=== PATIENT | female | born 1945 | race Caucasian/White ===

== ENCOUNTER → 2016-10-31 | Outpatient (CLI) | payer MEDICARE ==
--- NOTE | 2016-10-31 15:11 | BD ---
EXAMINATION TYPE: MG DEXA axial skeleton. DATE OF EXAM: 10/31/2016 10:16 AM COMPARISON: Previous exam October CLINICAL HISTORY: Known osteopenia Height: 63.5 in Weight: 170 lbs FRAX RISK QUESTIONS: Alcohol (3 or more units per day): NO Family History (Parent hip fracture): NO Glucocorticoids (More than 3mos): NO (Ex: prednisone, prednisolone, methylprednisolone, dexamethasone, and hydrocortisone). History of Fracture in Adulthood: NO Secondary Osteoporosis: 1. Type 1 Diabetes: NO 2. Hyperthyroidism: NO 3. Menopause before 45: NO 4. Malnutrition: NO 5. Chronic liver disease: NO Rheumatoid Arthritis: NO Current Tobacco Use: NO RISK FACTORS HISTORY OF: Active: YES Postmenopausal woman: AGE 52 Take estrogen and/or progesterone medications: YES How long: PREMARIN VAG. CREAM 5 YRS Lost more than 2 inches in height since high school: YES 2" MEDICATIONS: Osteoporosis Medications: NOT NOW Which medication: Evista How Long: AGE 52 - 54 Additional Medications: VITAMIN D, PREMARIN VAG CREAM, BENICAR, PRILOSEC OTC, BABY ASPIRIN, OCUVITE, ADVAIR INHALER EXAM MEASUREMENTS: Bone mineral densitometry was performed using the Vacation View System. 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 Bone mineral density about the R hip (g/cm2): 0.807 Bone mineral density about the L hip (g/cm2): 0.645 T Score values are as follows: -----R Neck: -1.7 -----L Neck: -2.8 -----R Total: -0.4 -----L Total: -2.2 Bone mineral density has: Increased 10.2% since study of: 10/30/2014 IMPRESSION: Osteopenia Left femoral neck in the osteoporotic range may be due to patient's previous treatment. NOTE: T-SCORE=SD OF THE YOUNG ADULT MEAN.
--- NOTE | 2016-11-01 10:24 | MM ---
Reason for exam: screening (asymptomatic). Last mammogram was performed 1 year and 1 month ago. History: Patient is postmenopausal and has history of other cancer at age 12. Family history of premenopausal breast cancer in maternal grandmother at age 54. Benign left mammotome panel of the left breast, September 13, 2012. Benign left mammotome panel of the left breast, September 13, 2012. Benign excisional biopsy of the left breast, 1970. Took hormonal contraceptives for 10 years beginning at age 37. Physical Findings: A clinical breast exam by your physician is recommended on an annual basis and results should be correlated with mammographic findings. MG Screening Mammo w CAD Bilateral CC and MLO view(s) were taken. Prior study comparison: September 28, 2015, bilateral MG screening mammo w CAD. September 25, 2014, bilateral MG screening mammo w CAD. The breast tissue is heterogeneously dense. This may lower the sensitivity of mammography. Finding: There are stable typically benign calcifications in both breasts. Previous mammotome biopsy in the left breast. No significant changes in finding since September 28, 2015 and September 25, 2014. ASSESSMENT: Benign, BI-RAD 2 RECOMMENDATION: Routine screening mammogram of both breasts in 1 year.
== END | disposition home or self-care (01) ==
LOC: RADMAMWWP 10:11
PROVIDERS: ATTEND Obstetrics & Gynecology
DX: Z12.31 Encounter for screening mammogram for malignant neoplasm of breast (principal); M85.80 Other specified disorders of bone density and structure, unspecified site; M81.0 Age-related osteoporosis without current pathological fracture
CPT/HCPCS: 77080; G0202

== ENCOUNTER → 2016-12-19 | Outpatient (CLI) | payer MEDICARE ==
--- NOTE | 2016-12-19 08:42 | US ---
EXAMINATION TYPE: US liver DATE OF EXAM: 12/19/2016 COMPARISON: NONE CLINICAL HISTORY: R94.5 Abn results of liver function study. Takes medication for HTN, allergies, on aspirin and vitamins; gallbladder removed. EXAM MEASUREMENTS: Liver Length: 11.4 cm Gallbladder Wall: surgically removed CBD: 0.6 cm Right Kidney: 9.8 x 6.6 x 4.7 cm Pancreas: hyperechoic Liver: fatty liver as is hyperechoic to right renal cortex Gallbladder: surgically absent CBD: wnl Right Kidney: No hydronephrosis or masses seen Visualized pancreas shows no worrisome mass or ductal dilatation. Visualized liver is heterogeneously hyperechoic in appearance suggesting fatty infiltration. Evaluation for focal masses is suboptimal d ue to the heterogeneity. No intrahepatic ductal dilatation is seen. Gallbladder is surgically absent. Some cortical thinning in visualized right kidney is present. IMPRESSION: Heterogeneous hyperechoic appearance of liver is likely on basis of diffuse fatty infiltr ation, underlying hepatocellular disease cannot BE excluded. Imaging guided random biopsy for tissue analysis can be performed if desired.
== END | disposition home or self-care (01) ==
LOC: RADUSWWP 07:26
PROVIDERS: ATTEND Family Medicine
DX: R93.3 Abnormal findings on diagnostic imaging of other parts of digestive tract (principal)
CPT/HCPCS: 76705

== ENCOUNTER → 2017-11-26 | Outpatient (CLI) | payer MEDICARE ==
--- NOTE | 2017-11-26 15:07 | MM ---
Reason for exam: screening (asymptomatic). Last mammogram was performed 1 year and 1 month ago. History: Patient is postmenopausal and has history of other cancer at age 12. Family history of premenopausal breast cancer in maternal grandmother at age 54. Benign left mammotome panel of the left breast, September 13, 2012. Benign left mammotome panel of the left breast, September 13, 2012. Benign excisional biopsy of the left breast, 1970. Took hormonal contraceptives for 10 years beginning at age 37. Physical Findings: A clinical breast exam by your physician is recommended on an annual basis and results should be correlated with mammographic findings. MG Screening Mammo w CAD Bilateral CC and MLO view(s) were taken. Technologist: RT Madeleine (R)(M) Prior study comparison: October 31, 2016, bilateral MG screening mammo w CAD. September 28, 2015, bilateral MG screening mammo w CAD. The breast tissue is heterogeneously dense. This may lower the sensitivity of mammography. Finding: There are typically benign dystrophic, round calcifications in both breasts. Previous mammotome biopsy in the left breast x 2. There is no discrete abnormality. ASSESSMENT: Benign, BI-RAD 2 RECOMMENDATION: Routine screening mammogram of both breasts in 1 year.
== END | disposition home or self-care (01) ==
LOC: RADMAMWWP 09:23
PROVIDERS: ATTEND Obstetrics & Gynecology
DX: Z12.31 Encounter for screening mammogram for malignant neoplasm of breast (principal)
CPT/HCPCS: 77067

== ENCOUNTER → 2018-12-02 | Outpatient (CLI) | payer MEDICARE ==
--- NOTE | 2018-12-03 11:39 | BD ---
EXAMINATION TYPE: Axial Bone Density DATE OF EXAM: 12/02/2018 COMPARISON: 10/31/2016 CLINICAL HISTORY: M [age] Height: 63.5 IN Weight: 172 LBS RISK FACTORS HISTORY OF: Active: YES Postmenopausal woman: AGE 54 MEDICATIONS: Osteoporosis Medications: NONE NOW Which medication: Fosamax How Lon - 2008 Additional Medications: CALCIUM, VIT D, BLOOD PRESSURE MEDS, PRILOSEC,OCUVITE, Additional History: PT HAD SARCOMA IN LEFT LEG. EXAM MEASUREMENTS: Bone mineral densitometry was performed using the ZIMPERIUM System. Bone mineral density as measured about the Lumbar spine is: ----- L1-L4(G/cm2): 1.198 T Score Values are as follows: ----- L2: 0.2 ----- L3: 0.6 ----- L4: -0.6 ----- L1-L4: 0.1 Bone mineral density has: Increased 6.6% since study of: 10/31/2016 Bone mineral density about the R hip (g/cm2): 0.800 Bone mineral density about the L hip (g/cm2): 0.608 T Score values are as follows: -----R Neck: -1.7 -----L Neck: -3.1 -----R Total: -0.7 -----L Total: -3.0 Bone mineral density has: Decreased -8.3% since study of: 10/31/2016 IMPRESSION: Osteoporosis (T Score less than -2.5) with regards to the left femur. There is increased fracture risk and therapy is usually indicated based on age. Re-Screen 1-2 years. NOTE: T-SCORE=SD OF THE YOUNG ADULT MEAN.
--- NOTE | 2018-12-03 13:31 | MM ---
Reason for exam: screening (asymptomatic). Last mammogram was performed 1 year ago. History: Patient is postmenopausal and has history of other cancer at age 12. Family history of premenopausal breast cancer in maternal grandmother at age 54. Benign left mammotome panel of the left breast, September 13, 2012. Benign left mammotome panel of the left breast, September 13, 2012. Benign excisional biopsy of the left breast, 1970. Took hormonal contraceptives for 10 years beginning at age 37. Physical Findings: A clinical breast exam by your physician is recommended on an annual basis and results should be correlated with mammographic findings. MG 3D Screening Mammo W/Cad Bilateral CC and MLO view(s) were taken. Prior study comparison: November 26, 2017, bilateral MG screening mammo w CAD. October 31, 2016, bilateral MG screening mammo w CAD. The breast tissue is heterogeneously dense. This may lower the sensitivity of mammography. Benign appearing bilateral calcifications. No suspicious abnormality. No significant changes when compared with prior studies. ASSESSMENT: Benign, BI-RAD 2 RECOMMENDATION: Routine screening mammogram of both breasts in 1 year.
== END | disposition home or self-care (01) ==
LOC: RADMAMWWP 14:45
PROVIDERS: ATTEND Obstetrics & Gynecology
DX: Z12.31 Encounter for screening mammogram for malignant neoplasm of breast (principal); M81.0 Age-related osteoporosis without current pathological fracture
CPT/HCPCS: 77063; 77067; 77080

== ENCOUNTER → 2018-12-31 | Outpatient (CLI) | payer MEDICARE ==
--- NOTE | 2018-12-31 20:13 | XR ---
EXAMINATION TYPE: XR lumbar spine 2 or 3V DATE OF EXAM: 12/31/2018 CLINICAL HISTORY: Lumbago, history of osteoarthritis TECHNIQUE: Frontal and lateral images of the lumbar spine are obtained. COMPARISON: None FINDINGS: There are 5 lumbar type vertebral bodies identified. Spina bifida defect L5 level is seen. The lumbar spine shows satisfactory alignment without evidence of acute fracture or dislocation. Sunday tebral body heights and disk space heights are within normal limits. Severe anterior spur noted at T1 1-T12 level with mild disc space narrowing and endplate sclerosis. Cholecystectomy clips in the overl mercedez soft tissue are present. Facet arthropathy lower lumbar levels is noted. IMPRESSION: As above.
== END | disposition home or self-care (01) ==
LOC: RADXRMAIN 14:21
PROVIDERS: ATTEND Family Medicine
DX: M99.73 Connective tissue and disc stenosis of intervertebral foramina of lumbar region (principal); M46.96 Unspecified inflammatory spondylopathy, lumbar region; Q05.7 Lumbar spina bifida without hydrocephalus
CPT/HCPCS: 72100

== ENCOUNTER → 2019-01-10 | Outpatient (CLI) | payer MEDICARE ==
--- NOTE | 2019-01-12 18:39 | MR ---
EXAMINATION TYPE: MR lumbar spine wo con DATE OF EXAM: 01/10/2019 COMPARISON: X-ray dated 12/31/2018 HISTORY: LBP, Intervertebral disc degeneration TECHNIQUE: Multiplanar, multisequence images of the lumbar spine were acquired. FINDINGS: Although there are no suspicious lesions there is diffuse patchy bone marrow signal through out. This is within normal limits overall. Conus medullaris is unremarkable turning at L1. Tarlov cys ts or synovial cyst is seen on the left at L5-S1. Probable renal sinus cysts are present bilaterally. L1-L2: There is a small broad-based disc bulge without spinal canal stenosis or neural foraminal narr owing. L2-L3: Facet arthropathy is seen with a broad-based disc bulge creating mild right neural foraminal n arrowing. No left neural foraminal narrowing. L3-L4: Broad-based disc bulge and facet arthropathy is seen resulting in very minimal bilateral neura l from narrowing without spinal canal stenosis. L4-L5: There is facet arthropathy and a broad-based disc bulge resulting in minimal bilateral neural foraminal narrowing. No spinal canal stenosis. L5-S1: There is a broad-based disc bulge without spinal canal stenosis and narrowing. IMPRESSION: 1. No vertebral body height loss or malalignment of the lumbar spine. No focal disc herniation or spi nal canal stenosis. Mild multilevel degenerative disc disease results in multiple levels of mild neur al foraminal narrowing as detailed above. 2. Diffuse bone marrow heterogeneity that can be seen sequela of chronic diseases, tobacco abuse, obe sity, or anemia.
== END ==
LOC: RADMRIMAIN 20:11
PROVIDERS: ATTEND Family Medicine
DX: M48.07 Spinal stenosis, lumbosacral region (principal); M51.36 Other intervertebral disc degeneration, lumbar region; M51.26 Other intervertebral disc displacement, lumbar region; M46.96 Unspecified inflammatory spondylopathy, lumbar region
CPT/HCPCS: 72148

== ENCOUNTER → 2019-12-18 | Outpatient (CLI) | payer MEDICARE ==
--- NOTE | 2019-12-19 09:12 | MM ---
Reason for exam: screening (asymptomatic). Last mammogram was performed 1 year ago. History: Patient is postmenopausal and has history of other cancer at age 12. Family history of premenopausal breast cancer in maternal grandmother at age 54. Benign left mammotome panel of the left breast, September 13, 2012. Benign left mammotome panel of the left breast, September 13, 2012. Benign excisional biopsy of the left breast, 1970. Took hormonal contraceptives for 10 years beginning at age 37. Taking estrogen. Physical Findings: A clinical breast exam by your physician is recommended on an annual basis and results should be correlated with mammographic findings. MG 3D Screening Mammo W/Cad Bilateral CC and MLO view(s) were taken. Prior study comparison: December 02, 2018, bilateral MG 3d screening mammo w/cad. November 26, 2017, bilateral MG screening mammo w CAD. The breast tissue is heterogeneously dense. This may lower the sensitivity of mammography. Stable benign calcifications. There is no discrete abnormality. No significant changes when compared with prior studies. ASSESSMENT: Benign, BI-RAD 2 RECOMMENDATION: Routine screening mammogram of both breasts in 1 year.
== END | disposition home or self-care (01) ==
LOC: RADMAMWWP 10:33
PROVIDERS: ATTEND Obstetrics & Gynecology
DX: Z12.31 Encounter for screening mammogram for malignant neoplasm of breast (principal); Z80.3 Family history of malignant neoplasm of breast
CPT/HCPCS: 77063; 77067

== ENCOUNTER → 2021-08-09 | Outpatient (CLI) | payer MEDICARE | END | disposition home or self-care (01) | LOC: LABWHC1 09:24 | PROVIDERS: ATTEND Family Medicine | DX: I10 Essential (primary) hypertension (principal) | CPT/HCPCS: 36415; 93005 ==

== ENCOUNTER → 2021-09-12 | Outpatient (CLI) | payer MEDICARE ==
[~2021-09-12] MED LIST: REGADENOSON 0.4 MG/5 ML SYRINGE IV PRN
--- NOTE | 2021-09-12 11:29 | ECHOF ---
Referral Reason:I10 Hypertention MEASUREMENTS -------- HEIGHT: 162.6 cm WEIGHT: 76.7 kg BP: RVIDd: 2.0 cm (< 3.3) IVSd: 1.0 cm (0.6 - 1.1) LVIDd: 4.4 cm (3.9 - 5.3) LVPWd: 1.1 cm (0.6 - 1.1) IVSs: 1.4 cm LVIDs: 3.1 cm LVPWs: 1.4 cm LA Diam: 3.0 cm (2.7 - 3.8) LAESV Index (A-L): 14.98 ml/m Ao Diam: 2.9 cm (2.0 - 3.7) AV Cusp: 1.8 cm (1.5 - 2.6) MV EXCURSION: 14.273 mm (> 18.000) MV EF SLOPE: 43 mm/s (70 - 150) EPSS: 0.3 cm MV E Dylan: 0.74 m/s MV DecT: 214 ms MV A Dylan: 1.13 m/s MV E/A Ratio: 0.65 FINDINGS -------- Sinus rhythm. This was a technically adequate study. The left ventricular size is normal. Left ventricular wall thickness is normal. Overall left vent ricular systolic function is normal with, an EF between 55 - 60 %. The right ventricle is normal in size. Normal LA size by volume 22+/-6 ml/m2. The right atrial size is normal. Interatrial and interventricular septum intact. The aortic valve is trileaflet, and appears structurally normal. No aortic stenosis or regurgitation. The mitral valve is normal. Mild mitral regurgitation is present. The tricuspid valve appears structurally normal. Trace tricuspid regurgitation present. Unable to estimate RVSP due to inadequate TR jet spectral doppler profile. The pulmonic valve was not well visualized. The aortic root size is normal. Normal inferior vena cava with normal inspiratory collapse consistent with estimated right atrial pre ssure of 5 mmHg. There is no pericardial effusion. CONCLUSIONS -------- 1. Left ventricular wall thickness is normal. 2. Overall left ventricular systolic function is normal with, an EF between 55 - 60 %. 3. Normal LA size by volume 22+/-6 ml/m2. 4. The aortic valve is trileaflet, and appears structurally normal. No aortic stenosis or regurgitati on. 5. Mild mitral regurgitation is present. 6. Trace tricuspid regurgitation present. 7. There is no pericardial effusion. LEGAL INSTRUCTOR: Sherry Cruz RDCS
--- NOTE | 2021-09-12 13:10 | NM ---
EXAMINATION TYPE: NM stress lexiscan cardiolite DATE OF EXAM: 09/12/2021 COMPARISON: NONE HISTORY: 75-year-old female R94.31, abnormal EKG TECHNIQUE: After the intravenous administration of 9.9 mCi Tc 99m Sestamibi - Cardiolite resting SPE CT images acquired 60 minutes post injection. The patient received 0.4mg Lexiscan, 25.5 mCi Tc 99m Sestamibi - Stress images obtained [address] injection FINDINGS: Review of stress and rest SPECT images demonstrates focal apical reversibility. No other suspicious p erfusion abnormality is seen. Gated analysis shows normal wall motion with an estimated left ventricu lar ejection fraction of 67 %. TID is normal at 0.71. IMPRESSION: Focal apical reversibility, also corroborated on polar maps. Small area of inducible ischemia here is not excluded.
--- NOTE | 2021-09-12 14:59 | EST ---
EXERCISE STRESS AGE: 75 SEX: F HT: 5'4" WT: 169 lbs PROTOCOL: Lexiscan Cardiolite STAGE: NA DURATION OF EXERCISE: NA HEART RATE REST: 97 BLOOD PRESSURE REST: 162/56 MAXIMUM HEART RATE ACHIEVED: 116 MAXIMUM BLOOD PRESSURE: 172/52 85% MPHR: 125 100% MPHR: 147 METS: NA INDICATIONS: Hypertension CLINICAL INFORMATION: Baseline rhythm is sinus mechanism, rate of 97, evidence suggesting anterior wall myocardial infarction with rare PVCs. Baseline blood pressure 162/56 mmHg. Patient received injection of Lexiscan. Electrocardiographic monitoring revealed no evidence of diagnostic ischemic ST deviation. Cardiolite was injected per protocol. CONCLUSION: 1. Nondiagnostic electrocardiographic stress testing. 2. Nuclear images will be reported separately. MMODL / IJN: [id number] /
== END | disposition home or self-care (01) ==
LOC: RADNMMAIN 07:55
PROVIDERS: ATTEND Family Medicine
DX: I08.1 Rheumatic disorders of both mitral and tricuspid valves (principal); I10 Essential (primary) hypertension; R94.31 Abnormal electrocardiogram [ECG] [EKG]
CPT/HCPCS: 93017; 93306; 78452; A9500; J2785

== ENCOUNTER → 2022-05-10 | Outpatient (CLI) | payer MEDICARE ==
--- NOTE | 2022-05-10 12:02 | BD ---
EXAMINATION TYPE: Axial Bone Density DATE OF EXAM: 05/10/2022 COMPARISON: 12/02/2018 CLINICAL HISTORY: 76 years year old Female. ICD-10 CODE: M81.0 AGE-RELATED OSTEOPOROSIS W/O CURRENT Height: 64.25 Weight: 169.4 FRAX RISK QUESTIONS: Alcohol (3 or more units per day): NO Family History (Parent hip fracture): NO Glucocorticoids (More than 3mos): YES, INHALER (ADVAIR) DAILY IN AM (Ex: prednisone, prednisolone, methylprednisolone, dexamethasone, and hydrocortisone). History of Fracture in Adulthood: NO Secondary Osteoporosis: 1. Type 1 Diabetes: NO 2. Hyperthyroidism: NO 3. Menopause before 45: NO 52 4. Malnutrition: NO 5. Chronic liver disease: NO Rheumatoid Arthritis: NO Current Tobacco Use: NO RISK FACTORS HISTORY OF: Family History of Osteoporosis: YES, MOTHER Active: YES Diet low in dairy products/other sources of calcium: NO, SUFFICIENT DIET Postmenopausal woman: YES Lost more than 2 inches in height since high school: NO Frequent falls: NO Poor Health: GOOD Hyperparathyroidism: NO Adrenal Insufficiency: NO MEDICATIONS: Prednisone or other steroids: ADVAIR INHALER How Lon-10 YEARS Additional Medications: VITAMIN D AND CALCIUM, ADVAIR INHALER, DAILY PRILOSEC, BLOOD PRESSURE MEDS SI NCE AUGUST 2021 (NORVAS, LISINOPRIL) Additional History: 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 Bone mineral density as measured about the Lumbar spine is: ----- L1-L4(G/cm2): 1.139 T Score Values are as follows: ----- L1: 0.8 ----- L2: -0.1 ----- L3: -0.1 ----- L4: -1.5 ----- L1-L4: -0.3 Bone mineral density has: Decreased -4.9% since study of: 12/02/2018 Bone mineral density about the R hip (g/cm2): 0.924 Bone mineral density about the L hip (g/cm2): 0.613 T Score values are as follows: -----R Neck: -1.5 -----L Neck: -3.0 -----R Total: -0.7 -----L Total: -3.1 Bone mineral density has: Decreased -0.8% since study of: 12/02/2018 FRAX%s: The graph provided illustrates a 8.7% chance for a major osteoporotic fx and a 3.8% chance fo r the hips probability for fx in 10 years time. IMPRESSION: Osteoporosis (T Score less than -2.5). There is increased fracture risk and therapy is usually indicated based on age. Re-Screen 1-2 years. NOTE: T-SCORE=SD OF THE YOUNG ADULT MEAN.
--- NOTE | 2022-05-10 13:03 | MM ---
Reason for Exam: Screening (asymptomatic). Last mammogram was performed 2 year(s) and 4 month(s) ago. Patient History: Menarche at age 14. First Full-Term at age 32. Late child-bearing (after 32). Postmenopausal. Other cancer, age 12. Hormonal Contraceptives for 10 years from age 37 until age 47. 1970, Benign Excisional Biopsy on the left side. 09/13/2012, Benign Core Biopsy on the left side. 09/13/2012, Benign Core Biopsy on the left side. Maternal grandmother had breast cancer, age 54. Risk Values: Syeda 5 year model risk: 3.7%. NCI Lifetime model risk: 8.3%. Prior Study Comparison: 11/26/2017 Bilateral Screening Mammogram, [facility]. 12/02/2018 Bilateral Screening Mammogram, [facility]. 12/18/2019 Bilateral Screening Mammogram, [facility]. Tissue Density: The breast tissue is heterogeneously dense. This may lower the sensitivity of mammography. Findings: Analyzed By CAD. There is no suspicious group of microcalcifications or new suspicious mass in either breast. Overall Assessment: Benign, BI-RAD 2 Management: Screening Mammogram of both breasts in 1 year. A clinical breast exam by your physician is recommended on an annual basis and results should be correlated with mammographic findings. Electronically signed and approved by: Gregor Fletcher M.D. Radiologis
== END | disposition home or self-care (01) ==
LOC: RADMAMWWP 09:49
PROVIDERS: ATTEND Obstetrics & Gynecology
DX: Z12.31 Encounter for screening mammogram for malignant neoplasm of breast (principal); M81.0 Age-related osteoporosis without current pathological fracture; Z78.0 Asymptomatic menopausal state; Z79.51 Long term (current) use of inhaled steroids; Z80.3 Family history of malignant neoplasm of breast
CPT/HCPCS: 77063; 77067; 77080

== ENCOUNTER 2024-10-01 10:05 | Inpatient (IN) | payer MEDICARE ==
--- NOTE | 2024-10-01 10:47 | ED ---
Upper Extremity HPI - General Chief Complaint: Extremity Injury, Upper Stated Complaint: fall Time Seen by Provider: 10/01/24 10:43 Source: patient, RN notes reviewed Mode of arrival: ambulatory Limitations: no limitations - History of Present Illness Initial Comments: 78-year-old female presenting for right arm injury 2 hours ago. States she had a trip and fall in her home causing her to fall into the door frame, striking her right arm on the door frame. Denies head injury or loss of consciousness. Denies blood thinners. States she believes the injury is in her humerus. She is experiencing intermittent muscle spasms in the upper right arm. States she lives alone and she called her daughters to tell them she believes she dislocated her shoulder, and her daughters were unable to lift her up prompting them to call EMS. - Related Data Home Medications Medication Instructions Recorded Confirmed Aspirin 81 mg PO DAILY 01/06/15 01/06/15 Cholecalciferol [Vitamin D3] 2,000 unit PO DAILY@1200 01/06/15 01/06/15 Fluticasone Propion/Salmeterol 2 puff INHALATION DAILY 01/06/15 01/06/15 [Advair 250-50 Diskus] Olmesartan/Hydrochlorothiazide 1 tab PO DAILY 01/06/15 01/06/15 [Benicar Hct 20-12.5 mg Tablet] Omeprazole [PriLOSEC] 10 mg PO AC-BRKFST 01/06/15 01/06/15 Previous Rx's Medication Instructions Recorded levoFLOXacin [Levaquin] 500 mg PO DAILY #5 tab 01/06/15 Allergies Allergy/AdvReac Type Severity Reaction Status Date / Time meperidine HCl [From Demerol] Allergy Rash/Hives Verified 01/06/15 11:18 diphenhydramine HCl AdvReac Confusion Verified 01/06/15 11:18 [From Benadryl] Review of Systems ROS Statement: Those systems with pertinent positive or pertinent negative responses have been documented in the HPI. ROS Other: All systems not noted in ROS Statement are negative. Past Medical History Past Medical History: Asthma, Eye Disorder, Hypertension, Osteoarthritis (OA) History of Any Multi-Drug Resistant Organisms: None Reported Past Surgical History: Breast Surgery, Cholecystectomy Additional Past Surgical History / Comment(s): amputation left BKA Past Psychological History: No Psychological Hx Reported Smoking Status: Never smoker Past Alcohol Use History: Daily Past Drug Use History: None Reported General Exam Limitations: no limitations General appearance: alert, in no apparent distress Head exam: Present: atraumatic, normocephalic, normal inspection Eye exam: Present: normal appearance, PERRL, EOMI. Absent: scleral icterus, conjunctival injection, periorbital swelling Respiratory exam: Present: normal lung sounds bilaterally. Absent: respiratory distress, wheezes, rales, rhonchi, stridor Cardiovascular Exam: Present: regular rate, normal rhythm, normal heart sounds. Absent: systolic murmur, diastolic murmur, rubs, gallop, clicks Right Shoulder Exam: Present: tenderness (Point tenderness in anterior aspect of shoulder and to proximal humerus). Absent: normal inspection, full ROM (Limited range of motion of right shoulder due to pain), swelling, abrasion Upper Arm exam: Present: tenderness. Absent: normal inspection, full ROM Elbow exam: Present: normal inspection, full ROM. Absent: tenderness, swelling Forearm Wrist exam: Present: normal inspection, full ROM. Absent: tenderness, swelling Hand Wrist exam: Present: normal inspection, full ROM. Absent: tenderness, swelling Vascular: Present: normal capillary refill, radial pulse. Absent: vascular compromise Neurological exam: Present: alert, oriented X3 Psychiatric exam: Present: normal affect, normal mood Skin exam: Present: warm, dry, intact, normal color. Absent: rash Course Vital Signs 10/01/24 10/01/24 10:08 11:41 Pulse Rate 101 H 105 H Respiratory 18 17 Rate Blood Pressure 150/95 156/74 O2 Sat by Pulse 95 95 Oximetry Medical Decision Making - Medical Decision Making Was pt. sent in by a medical professional or institution (, PA, FLOOR CLEANER, urgent care, hospital, or skilled nursing...) When possible be specific @ -No Did you speak to anyone other than the patient for history (EMS, parent, family, police, friend...)? What history was obtained from this source @ -Daughter supplemented history Did you review nursing and triage notes (agree or disagree)? Why? @ -I reviewed and agree with nursing and triage notes Were old charts reviewed (outside hosp., previous admission, EMS record, old EKG, old radiological studies, urgent care reports/EKG's, skilled nursing records)? Report findings @ -No old charts were reviewed Differential Diagnosis (chest pain, altered mental status, abdominal pain women, abdominal pain men, vaginal bleeding, weakness, fever, dyspnea, syncope, headache, dizziness, GI bleed, back pain, seizure, CVA, palpatations, mental health, musculoskeletal)? @ -Differential Musculoskeletal Muscular strain, contusion, ligament sprain, fracture, arthritis, septic arthritis, bursitis, cellulitis, muscle spasm, nerve compression, DVT, arterial occlusion, herpes zoster, electrolyte abnormality, tumor.... This is not meant to be in all inclusive list EKG interpreted by me (3pts min.). @ -None X-rays interpreted by me (1pt min.). @ -X-ray right shoulder/humerus reveals acute moderately displaced comminuted oblique fracture through the proximal humerus diaphysis with lateral apex angulation CT interpreted by me (1pt min.). @ -None done U/S interpreted by me (1pt. min.). @ -None done What testing was considered but not performed or refused? (CT, X-rays, U/S, labs)? Why? @ -None What meds were considered but not given or refused? Why? @ -None Did you discuss the management of the patient with other professionals (professionals i.e. , ELIZA, FLOOR CLEANER, lab, RT, psych nurse, social sciences chair, senior wealth advisor, teacher, inshore undersea warfare officer, case management manager)? Give summary @ -I spoke with Lisa Frazier PA-C who recommends admission for surgical fixation Was smoking cessation discussed for >3mins.? @ -No Was critical care preformed (if so, how long)? @ -No Were there social determinants of health that impacted care today? How? (Homelessness, low income, unemployed, alcoholism, drug addiction, tr ansportation, low edu. Level, literacy, decrease access to med. care, [facility], rehab)? @ -No Was there de-escalation of care discussed even if they declined (Discuss DNR or withdrawal of care, Hospice)? DNR status @ -No What co-morbidities impacted this encounter? (DM, HTN, Smoking, COPD, CAD, Cancer, CVA, ARF, Chemo, Hep., AIDS, mental health diagnosis, sleep apnea, morbid obesity)? @ -None Was patient admitted / discharged? Hospital course, mention meds given and route, prescriptions, significant lab abnormalities, going to OR and other pertinent info. @ -Admitted. 78-year-old female presenting for right shoulder injury 2 hours ago status post mechanical fall. Neurovascularly intact. Provided with IM Toradol and Norflex for supportive care. X-ray right shoulder/humerus reveals acute moderately displaced comminuted oblique fracture through the proximal humerus diaphysis with lateral apex angulation. I spoke with Lisa Frazier PA-C who recommends admission for surgical fixation. [facility] with medical consult for surgical clearance. Case was discussed with my ED attending Dr. Mckenna. Undiagnosed new problem with uncertain prognosis? @ -No Drug Therapy requiring intensive monitoring for toxicity (Heparin, Nitro, Insulin, Cardizem)? @ -No Were any procedures done? @ -No Diagnosis/symptom? @ -Right humerus fracture Acute, or Chronic, or Acute on Chronic? @ -Acute Uncomplicated (without systemic symptoms) or Complicated (systemic symptoms)? @ -Uncomplicated Side effects of treatment? @ -No Exacerbation, Progression, or Severe Exacerbation? @ -No Poses a threat to life or bodily function? How? (Chest pain, USA, GA, pneumonia, PE, COPD, DKA, ARF, appy, cholecystitis, CVA, Diverticulitis, Homicidal, Suicidal, threat to staff... and all critical care pts) @ -Yes Disposition Clinical Impression: Right humeral fracture Disposition: ADMITTED IP TO THIS HOSP Referrals: Mj Ron MD [Primary Care Provider] - 1-2 days Time of Disposition: 13:33
[2024-10-01] MEDS: ORPHENADRINE 30 MG/ML 2 ML VIAL IM STA (11:12)
[2024-10-01] MEDS: KETOROLAC 15 MG/ML 1 ML VIAL IM STA (11:12)
[2024-10-01] MEDS: KETOROLAC 15 MG/ML 1 ML VIAL IVP STA ×2 (11:13→11:21)
[2024-10-01] MEDS: ORPHENADRINE 30 MG/ML 2 ML VIAL IVP STA (11:20)
--- NOTE | 2024-10-01 12:01 | XR ---
EXAMINATION TYPE: XR shoulder complete RT, XR humerus RT DATE OF EXAM: 10/01/2024 11:54 AM INDICATION: Patient age:Female; 78 years old; Reason for study: right shoulder injury; pain COMPARISON: None TECHNIQUE: The right shoulder was examined in AP, internally rotated and scapular Y projections. . Right humerus was examined in AP and lateral projections. FINDINGS: Acute moderately displaced comminuted oblique fracture through the proximal humeral diaphysis extendi ng into the subcapital region. There is lateral apex angulation. Osteophytosis of the humeral head. N o dislocation. AC joint arthropathy with joint space narrowing. No significant soft tissue swelling. The visualized portions of the chest demonstrates pulmonary vascular congestion. IMPRESSION: Acute moderately displaced comminuted oblique fracture through the proximal humeral diaphysis with la teral apex angulation. [facility], , 10/01/2024 11:58 AM
[2024-10-01] MEDS ORDERED: NALOXONE 0.4 MG/ML 1 ML VIAL IV PRN (13:27)
[2024-10-01 14:18] LABS: Basophils # (A) 0.03 10*3/uL (0.00-0.10); Basophils % (A) 0.2 %; Eosinophils # (A) 0.01 10*3/uL (0.04-0.35); Eosinophils % (A) 0.1 %; HCT 36.4 % (37.2-46.3); HGB 12.8 g/dL (12.0-15.0); Lymphocytes # (A) 3.66 10*3/uL (0.90-5.00); Lymphocytes % (A) 27.4 %; MCH 31.9 pg (27.0-32.0); MCHC 35.2 g/dL (32.0-37.0); MCV 90.8 fL (80.0-97.0); Monocytes % (A) 6.7 %; Neutrophils # (A) 8.71 10*3/uL (1.80-7.70); Neutrophils % (A) 65.4 %; Platelet Count 227 10*3/uL (140-440); RBC 4.01 10*6/uL (4.10-5.20); RDW 12.4 % (11.5-14.5); WBC 13.34 10*3/uL (4.50-10.00)
[2024-10-01 14:41] LABS: ALT 42 U/L (4-34); AST 57 U/L (14-36); African American GFR (CKD) >90 (>60 ml/min/1.73 sqM); Albumin 3.9 g/dL (3.5-5.0); Alkaline Phosphatase 55 U/L (38-126); Anion Gap 10 mmol/L; Blood Urea Nitrogen 15 mg/dL (7-17); Calcium 9.4 mg/dL (8.4-10.2); Carbon Dioxide 22 mmol/L (22-30); Chloride 97 mmol/L (98-107); Glucose 114 mg/dL (74-99); Non-African American GFR(CKD) 88 (>60 ml/min/1.73 sqM); Potassium 3.9 mmol/L (3.5-5.1); Sodium 129 mmol/L (137-145); Total Bilirubin 1.2 mg/dL (0.2-1.3); Total Protein 6.1 g/dL (6.3-8.2)
[2024-10-01 14:47] LABS: INR 0.9 (<1.2); Prothrombin Time 10.3 sec (10.0-12.5)
[2024-10-01 14:49] LABS: Partial Thromboplastin Time 20.6 sec (22.0-30.0)
[2024-10-01] MEDS: CYCLOBENZAPRINE 10 MG TAB PO PRN (15:31)
[2024-10-01] MEDS: MORPHINE SULFATE 4 MG/ML SYRINGE IV PRN (15:32)
[2024-10-01] MEDS: ONDANSETRON 4 MG/2 ML VIAL IVP PRN (15:32)
[2024-10-01 15:53] LABS: Appearance,Urine Cloudy (Clear); Bacteria,Urine Few /hpf; Bilirubin,Urine Negative (Negative); Blood,Urine Negative (Negative); Color,Urine Yellow; Glucose,Urine (UA) Negative (Negative); Ketones,Urine Negative (Negative); Leukocyte Esterase,Urine Large (Negative); Mucus,Urine Occasional /hpf; Nitrite,Urine Negative (Negative); Protein,Urine Negative (Negative); RBC,Urine 3 /hpf (0-5); Specific Gravity,Urine 1.018 (1.001-1.035); Squamous Epithelial Cell,Urine 6 /hpf (0-4); WBC,Urine 23 /hpf (0-5)
--- NOTE | 2024-10-01 16:01 | P.HPOR ---
History of Present Illness H&P Date: 10/01/24 Chief Complaint: Right proximal humerus fracture Shama presents to the ER today with family after falling and sustaining injury to her right shoulder. She states that she tripped and fell in her home and hit the door frame with her right shoulder. On exam and x-ray in the emergency department she is found to have a three-part proximal humerus fracture. She is admitted to our service for surgical intervention and care. 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 She has had a gotuh-gxo-ieym prosthesis since. Past Medical History Past Medical History: Asthma, Eye Disorder, Hypertension, Osteoarthritis (OA) History of Any Multi-Drug Resistant Organisms: None Reported Past Surgical History: Breast Surgery, Cholecystectomy Additional Past Surgical History / Comment(s): amputation left BKA Past Psychological History: No Psychological Hx Reported Smoking Status: Never smoker Past Alcohol Use History: Daily Past Drug Use History: None Reported Medications and Allergies Home Medications Medication Instructions Recorded Confirmed Type Fluticasone Propion/Salmeterol 1 puff INHALATION RT-BID 01/06/15 10/01/24 History [Advair 250-50 Diskus] Albuterol Inhaler [Ventolin Hfa 2 puff INHALATION RT-Q4H PRN 10/01/24 10/01/24 History Inhaler] Albuterol Nebulized [Ventolin 2.5 mg INHALATION RT-QID PRN 10/01/24 10/01/24 History Nebulized] Calcium Carbonate/Vitamin D3 1 tab PO DAILY 10/01/24 10/01/24 History [Calcium 500 mg-Vit D3 5 mcg (200 Unit)] Lisinopril-Hctz 20-12.5 mg 2 tab PO DAILY 10/01/24 10/01/24 History [Zestoretic 20-12.5] Omeprazole Magnesium [PriLOSEC OTC] 20 mg PO BID 10/01/24 10/01/24 History amLODIPine [Norvasc] 10 mg PO DAILY 10/01/24 10/01/24 History lisinopriL [Zestril] 10 mg PO DAILY 10/01/24 10/01/24 History Allergies Allergy/AdvReac Type Severity Reaction Status Date / Time meperidine HCl [From Demerol] Allergy Rash/Hives Verified 10/01/24 14:36 diphenhydramine HCl AdvReac Confusion/H Verified 10/01/24 14:36 [From Benadryl] yperactive Physical Examination This is a pleasant 78-year-old female in no acute distress. She is alert and oriented at this time. Family is present at bedside. Exam of the head and neck revealed no obvious deformity. She has full cervical spine motion without difficulty or pain. Exam of the upper extremities reveals some swelling to the right shoulder and upper arm. She is unable to move the right shoulder and elbow. She has fairly good wrist and finger motion without difficulty. Neurovascular status to the right upper extremity is intact. Exam of the left upper extremity is unremarkable. Exam of bilateral lower extremities reveals no hip pain with logroll. There is a an nagmx-xgy-pqgo prosthesis noted on the left. She is able to lift each leg off the bed independently without pain. Neurovascular status to the right lower extremity is intact. Results X-rays of the right shoulder reveal a long oblique/spiral type fracture of the proximal humerus. There is no fracture into the humeral head noted. No other bony abnormalities noted. - Labs Labs: Abnormal Lab Results - Last 24 Hours (Table) 10/01/24 10/01/24 10/01/24 Range/Units 13:48 14:12 14:12 WBC 13.34 H (4.50-10.00) 10*3/uL RBC 4.01 L (4.10-5.20) 10*6/uL Hct 36.4 L (37.2-46.3) % Neutrophils # 8.71 H (1.80-7.70) 10*3/uL Eosinophils # 0.01 L (0.04-0.35) 10*3/uL APTT 20.6 L (22.0-30.0) sec Sodium 129 L (137-145) mmol/L Chloride 97 L (98-107) mmol/L Glucose 114 H (74-99) mg/dL AST 57 H (14-36) U/L ALT 42 H (4-34) U/L Total Protein 6.1 L (6.3-8.2) g/dL Urine Appearance (Clear) Ur Leukocyte Esterase (Negative) Urine WBC (0-5) /hpf Ur Squamous Epith Cells (0-4) /hpf Urine Bacteria (None) /hpf Urine Mucus (None) /hpf 10/01/24 Range/Units 15:05 WBC (4.50-10.00) 10*3/uL RBC (4.10-5.20) 10*6/uL Hct (37.2-46.3) % Neutrophils # (1.80-7.70) 10*3/uL Eosinophils # (0.04-0.35) 10*3/uL APTT (22.0-30.0) sec Sodium (137-145) mmol/L Chloride (98-107) mmol/L Glucose (74-99) mg/dL AST (14-36) U/L ALT (4-34) U/L Total Protein (6.3-8.2) g/dL Urine Appearance Cloudy H (Clear) Ur Leukocyte Esterase Large H (Negative) Urine WBC 23 H (0-5) /hpf Ur Squamous Epith Cells 6 H (0-4) /hpf Urine Bacteria Few H (None) /hpf Urine Mucus Occasional H (None) /hpf H & H 10/01/24 Range/Units 14:12 Hgb 12.8 (12.0-15.0) g/dL Hct 36.4 L (37.2-46.3) % Coagulation 10/01/24 Range/Units 14:12 INR 0.9 (<1.2) Result Diagrams: 10/01/24 14:12 10/01/24 13:48 Assessment and Plan (1) History of above-knee amputation of left lower extremity Current Visit: Yes Status: Acute Code(s): Z89.612 - ACQUIRED ABSENCE OF LEFT LEG ABOVE KNEE SNOMED Code(s): 606526264937040 (2) Right humeral fracture Current Visit: Yes Status: Acute Code(s): S42.301A - UNSP FRACTURE OF SHAFT OF HUMERUS, RIGHT ARM, INIT SNOMED Code(s): 40768931 Plan: The clinical and x-ray findings are discussed with the patient and her family. It is recommended she undergo closed reduction with insertion of intramedullary nail possible ORIF of the proximal humerus. The procedure was discussed in detail including the possible risks and outcomes. She was admitted to our service and we are planning surgery Sunday. We will ask her primary care physician to see her preoperatively.
[2024-10-01] MEDS: PANTOPRAZOLE 40 MG TABLET PO SCH (21:05)
[2024-10-01] MEDS: KETOROLAC 15 MG/ML 1 ML VIAL IVP PRN (21:30)
--- NOTE | 2024-10-02 07:57 | XR ---
EXAMINATION TYPE: XR chest 1V portable DATE OF EXAM: 10/02/2024 7:05 AM COMPARISON: None TECHNIQUE: XR chest 1V portable Portable AP radiograph of the chest. CLINICAL INDICATION:Female, 78 years old with history of pre op; right humerus fracture fixation. FINDINGS: Lungs/Pleura: There is no evidence of pleural effusion, focal consolidation, or pneumothorax. Pulmonary vascularity: Unremarkable. Heart/mediastinum: Cardiomediastinal silhouette is unremarkable. Musculoskeletal: No acute osseous pathology visualized. Other findings: Cholecystectomy clips identified in the right upper abdomen. IMPRESSION: No acute cardiopulmonary disease/process. [facility], , 10/02/2024 7:55 AM
[2024-10-02] MEDS: ACETAMINOPHEN TAB 325 MG TAB PO PRN (08:55)
[2024-10-02] MEDS: CALCIUM CARB-VIT D 500 MG-5 MCG TAB PO SCH (08:55)
[2024-10-02] MEDS: BUDESONIDE 0.5 MG/2 ML NEBU INHALATION SCH (09:08)
[2024-10-02] MEDS: IPRATROPIUM-ALBUTEROL 3 ML NEB INHALATION PRN (09:08)
--- NOTE | 2024-10-02 09:44 | P.PN ---
Subjective Progress Note Date: 10/02/24 Principal diagnosis: Right proximal humerus fracture. Status post fall. Shama presents to the ER today with family after falling and sustaining injury to her right shoulder. She states that she tripped and fell in her home and hit the door frame with her right shoulder. On exam and x-ray in the emergency department she is found to have a three-part proximal humerus fractur e. She is admitted to our service for surgical intervention and care. 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 She has had a odzdl-klt-ydto prosthesis since. 10/02/2024: The patient is stable from orthopedic standpoint. There are no new complaints or concerns today. Family is present at bedside. Vital signs are stable. Objective - Vital Signs Vital signs: Vital Signs Temp 98.4 F 10/02/24 07:01 Pulse 76 10/02/24 09:26 Resp 18 10/02/24 07:01 BP 95/54 10/02/24 07:01 Pulse Ox 93 L 10/02/24 07:01 FiO2 Intake & Output 10/01/24 10/02/24 10/02/24 18:59 06:59 18:59 Intake Total 300 Balance 300 Weight 78.471 kg Intake: Oral 300 Other: Voiding Method Bedside Commode # Voids 3 1 1 # Bowel Movements 1 1 - Exam This is a pleasant 78-year-old female in no acute distress. She is alert and oriented x 3. Exam of the right upper extremity reveals some evolving ecchymosis to the right shoulder and upper arm. There is mild soft tissue swelling. Sling is in place. She has full wrist and finger motion without difficulty or pain. Neurovascular status to the upper extremity is intact. - Labs CBC & Chem 7: 10/01/24 14:12 10/01/24 13:48 Labs: Abnormal Lab Results - Last 24 Hours (Table) 10/01/24 10/01/24 10/01/24 Range/Units 13:48 14:12 14:12 WBC 13.34 H (4.50-10.00) 10*3/uL RBC 4.01 L (4.10-5.20) 10*6/uL Hct 36.4 L (37.2-46.3) % Neutrophils # 8.71 H (1.80-7.70) 10*3/uL Eosinophils # 0.01 L (0.04-0.35) 10*3/uL APTT 20.6 L (22.0-30.0) sec Sodium 129 L (137-145) mmol/L Chloride 97 L (98-107) mmol/L Glucose 114 H (74-99) mg/dL AST 57 H (14-36) U/L ALT 42 H (4-34) U/L Total Protein 6.1 L (6.3-8.2) g/dL Urine Appearance (Clear) Ur Leukocyte Esterase (Negative) Urine WBC (0-5) /hpf Ur Squamous Epith Cells (0-4) /hpf Urine Bacteria (None) /hpf Urine Mucus (None) /hpf / Range/Units 15:05 WBC (4.50-10.00) 10*3/uL RBC (4.10-5.20) 10*6/uL Hct (37.2-46.3) % Neutrophils # (1.80-7.70) 10*3/uL Eosinophils # (0.04-0.35) 10*3/uL APTT (22.0-30.0) sec Sodium (137-145) mmol/L Chloride (98-107) mmol/L Glucose (74-99) mg/dL AST (14-36) U/L ALT (4-34) U/L Total Protein (6.3-8.2) g/dL Urine Appearance Cloudy H (Clear) Ur Leukocyte Esterase Large H (Negative) Urine WBC 23 H (0-5) /hpf Ur Squamous Epith Cells 6 H (0-4) /hpf Urine Bacteria Few H (None) /hpf Urine Mucus Occasional H (None) /hpf Assessment and Plan (1) History of above-knee amputation of left lower extremity Current Visit: Yes Status: Acute Code(s): Z89.612 - ACQUIRED ABSENCE OF LEFT LEG ABOVE KNEE SNOMED Code(s): 378392536885181 (2) Right humeral fracture Current Visit: Yes Status: Acute Code(s): S42.301A - UNSP FRACTURE OF SHAFT OF HUMERUS, RIGHT ARM, INIT SNOMED Code(s): 97020880 Plan: The clinical and x-ray findings are discussed with the patient and her family. It is recommended she undergo closed reduction with insertion of intramedullary nail possible ORIF of the proximal humerus. The procedure was discussed in detail including the possible risks and outcomes. She was admitted to our service and we are planning surgery Sunday. We will ask her primary care physician to see her preoperatively.
[2024-10-02] MEDS ORDERED: ALBUTEROL NEBULIZED 2.5 MG/3 ML INHALATION PRN (13:14)
--- NOTE | 2024-10-02 13:20 | P.CONS ---
History of Present Illness - Reason for Consult Preoperative clearance - History of Present Illness Patient is a very pleasant 78-year-old female had a mechanical fall and hit the right shoulder and patient had right humerus fracture. Patient is functionally female not dependent on ADLs and IADLs. Patient denied any significant cardiac history had only significant medical problem is seasonal allergies, asthma hypertension for which patient is on 3 medications although patient is hypotensive at this time. Patient also hyponatremic secondary to hydrochlorothiazide. Patient denied any chest pain at this time denied orthopnea paroxysmal nocturnal dyspnea ECG is not consistent with any ischemia. No acute ST-T wave changes. Patient will not need any further workup. REVIEW OF SYSTEMS: All other systems are negative except those mentioned in the HPI PHYSICAL EXAMINATION: GENERAL: The patient is alert and oriented x3, not in any acute distress. Well developed, well nourished. HEENT: Pupils are round and equally reacting to light. EOMI. No scleral icterus. No conjunctival pallor. Normocephalic, atraumatic. No pharyngeal erythema. No thyromegaly. CARDIOVASCULAR: S1 and S2 present. No murmurs, rubs, or gallops. PULMONARY: Chest is clear to auscultation, no wheezing or crackles. ABDOMEN: Soft, nontender, nondistended, normoactive bowel sounds. No palpable organomegaly. MUSCULOSKELETAL: No joint swelling or deformity. EXTREMITIES: No cyanosis, clubbing, or pedal edema. Humerus fracture as mentioned above NEUROLOGICAL: Gross neurological examination did not reveal any focal deficits. SKIN: No rashes. Assessment and plan -Right wrist fracture: Patient is already visible orthopedic surgery. No further workup is needed for clearance. - Hyponatremia patient was on IV fluids acute hydrochlorothiazide hypertension patient is hypotensive not requiring any antiarrhythmic agents at this time patient will need hydration given preoperative hypotension seasonal allergies, asthma patient has been in acute exacerbation of asthma at this time DVT prophylaxis: As per service Past Medical History Past Medical History: Asthma, Eye Disorder, Hypertension, Osteoarthritis (OA) History of Any Multi-Drug Resistant Organisms: None Reported Past Surgical History: Breast Surgery, Cholecystectomy Additional Past Surgical History / Comment(s): amputation left BKA Past Anesthesia/Blood Transfusion Reactions: Postoperative Nausea & Vomiting (PONV) Past Psychological History: No Psychological Hx Reported Smoking Status: Never smoker Past Alcohol Use History: Daily Past Drug Use History: None Reported Medications and Allergies Home Medications Medication Instructions Recorded Confirmed Type Fluticasone Propion/Salmeterol 1 puff INHALATION RT-BID 01/06/15 10/01/24 H istory [Advair 250-50 Diskus] Albuterol Inhaler [Ventolin Hfa 2 puff INHALATION RT-Q4H PRN 10/01/24 10/01/24 History Inhaler] Albuterol Nebulized [Ventolin 2.5 mg INHALATION RT-QID PRN 10/01/24 10/01/24 History Nebulized] Calcium Carbonate/Vitamin D3 1 tab PO DAILY 10/01/24 10/01/24 History [Calcium 500 mg-Vit D3 5 mcg (200 Unit)] Lisinopril-Hctz 20-12.5 mg 2 tab PO DAILY 10/01/24 10/01/24 History [Zestoretic 20-12.5] Omeprazole Magnesium [PriLOSEC OTC] 20 mg PO BID 10/01/24 10/01/24 History amLODIPine [Norvasc] 10 mg PO DAILY 10/01/24 10/01/24 History lisinopriL [Zestril] 10 mg PO DAILY 10/01/24 10/01/24 History Allergies Allergy/AdvReac Type Severity Reaction Status Date / Time meperidine HCl [From Demerol] Allergy Rash/Hives Verified 10/01/24 14:36 diphenhydramine HCl AdvReac Confusion/H Verified 10/01/24 14:36 [From Benadryl] yperactive Physical Exam Vitals: Vital Signs Temp Pulse Pulse Resp BP BP Pulse Ox 10/02/24 09:26 76 10/02/24 09:08 78 10/02/24 07:01 98.4 F 77 18 95/54 93 L 10/02/24 01:07 98.2 F 77 20 102/55 100 10/01/24 19:01 98.3 F 90 18 93/55 92 L 10/01/24 15:28 82 17 114/51 97 10/01/24 13:46 91 18 124/62 99 Intake and Output 10/01/24 10/02/24 10/02/24 22:59 06:59 14:59 Intake Total 300 Balance 300 Intake: Oral 300 Other: Voiding Method Bedside Commode # Voids 3 1 1 # Bowel Movements 1 1 Results CBC & Chem 7: 10/01/24 14:12 10/01/24 13:48 Labs: Abnormal Lab Results - Last 24 Hours (Table) 10/01/24 10/01/24 10/01/24 Range/Units 13:48 14:12 14:12 WBC 13.34 H (4.50-10.00) 10*3/uL RBC 4.01 L (4.10-5.20) 10*6/uL Hct 36.4 L (37.2-46.3) % Neutrophils # 8.71 H (1.80-7.70) 10*3/uL Eosinophils # 0.01 L (0.04-0.35) 10*3/uL APTT 20.6 L (22.0-30.0) sec Sodium 129 L (137-145) mmol/L Chloride 97 L (98-107) mmol/L Glucose 114 H (74-99) mg/dL AST 57 H (14-36) U/L ALT 42 H (4-34) U/L Total Protein 6.1 L (6.3-8.2) g/dL Urine Appearance (Clear) Ur Leukocyte Esterase (Negative) Urine WBC (0-5) /hpf Ur Squamous Epith Cells (0-4) /hpf Urine Bacteria (None) /hpf Urine Mucus (None) /hpf 10/01/24 Range/Units 15:05 WBC (4.50-10.00) 10*3/uL RBC (4.10-5.20) 10*6/uL Hct (37.2-46.3) % Neutrophils # (1.80-7.70) 10*3/uL Eosinophils # (0.04-0.35) 10*3/uL APTT (22.0-30.0) sec Sodium (137-145) mmol/L Chloride (98-107) mmol/L Glucose (74-99) mg/dL AST (14-36) U/L ALT (4-34) U/L Total Protein (6.3-8.2) g/dL Urine Appearance Cloudy H (Clear) Ur Leukocyte Esterase Large H (Negative) Urine WBC 23 H (0-5) /hpf Ur Squamous Epith Cells 6 H (0-4) /hpf Urine Bacteria Few H (None) /hpf Urine Mucus Occasional H (None) /hpf
[2024-10-02] MEDS: SODIUM CHLORIDE 0.9% 1,000 ML IV SCH (17:02)
[2024-10-02] MEDS: SYMBICORT 80-4.5 MCG INHALER INHALATION SCH (19:49)
[2024-10-03 05:02] LABS: African American GFR (CKD) >90 (>60 ml/min/1.73 sqM); Anion Gap 11 mmol/L; Blood Urea Nitrogen 23 mg/dL (7-17); Calcium 9.1 mg/dL (8.4-10.2); Carbon Dioxide 21 mmol/L (22-30); Chloride 101 mmol/L (98-107); Glucose 115 mg/dL (74-99); Non-African American GFR(CKD) 84 (>60 ml/min/1.73 sqM); Potassium 3.8 mmol/L (3.5-5.1); Sodium 133 mmol/L (137-145)
[2024-10-03] MEDS: DEXAMETHASONE SOD PHOSPHATE 4 MG/ML 1 ML VIAL IVP STA (12:05)
[2024-10-03] MEDS: fentaNYL (PF) 50 MCG/ML 2 ML AMP IVP PRN (13:00)
[2024-10-03] MEDS: MIDAZOLAM 2 MG/2 ML VIAL IV ONE (13:09)
--- NOTE | 2024-10-03 13:23 | P.ANPRN ---
Procedure Note - Anesthesia - Nerve Block Performed Right Supraclavicular Single Time Out Performed: Yes ([id number]) Date of Procedure: 10/03/24 Procedure Start Time: 13:00 Procedure Stop Time: 13:04 Location of Patient: PreOp Indication: Acute Post-Operative Pain, Requested by Surgeon Specifically requested for management of pain by DrAnkush: Wil Cuello Sedation Type: Sedate with meaningful contact maintained Preparation: Sterile Prep Position: Supine Catheter: None Needle Types: Pajunk Needle Gauge: 21 Ultrasound used to visualize needle placement: Yes Ultrasound used to observe medication spread: Yes Injectate: 0.5% Ropivacaine (see comment for volume) (30cc+decadron 4mg) Blood Aspirated: No Pain Paresthesia on Injection Noted: No Resistance on Injection: Normal Image Stored and Saved: Yes Events: Uneventful and Well Tolerated
[2024-10-03] MEDS ORDERED: LIDOCAINE 1% INJ 10MG/ML (20 ML MDV) ONE (13:36)
[2024-10-03] MEDS ORDERED: PROPOFOL 10 MG/ML 20 ML VIAL IV ONE (13:36)
[2024-10-03] MEDS ORDERED: TRANEXAMIC 1,000 MG/100ML-NACL PREMIX BAG ONE (13:36)
[2024-10-03] MEDS ORDERED: SUCCINYLCHOLINE CHLORIDE 200 MG/10 ML VIAL IV ONE (13:36)
[2024-10-03] MEDS ORDERED: NEOSTIGMINE 1 MG/ML 10 ML VIAL ONE (13:36)
[2024-10-03] MEDS ORDERED: GLYCOPYRROLATE 0.2 MG/ML 2 ML VIAL ONE (13:36)
[2024-10-03] MEDS ORDERED: ROCURONIUM 10 MG/ML (5 ML VIAL) IV ONE (13:36)
[2024-10-03] MEDS ORDERED: PHENYLEPHRINE-0.9% NACL SYG 1,000 MCG/10 ML SYRINGE ONE (13:36)
[2024-10-03] MEDS ORDERED: ROPIVACAINE 5 MG/ML 30 ML VIAL ONE (13:36)
[2024-10-03] MEDS ORDERED: DEXAMETHASONE SOD PHOSPHATE 4 MG/ML 1 ML VIAL ONE (13:36)
[2024-10-03] MEDS: IV FLUID CONTINUATION 1,000 ML IV ONE (13:44)
[2024-10-03] MEDS: LACTATED RINGERS 1,000 ML IV ONE (14:52)
--- NOTE | 2024-10-03 15:47 | FL ---
EXAMINATION TYPE: FL guidance operating room, XR humerus RT Intraoperative/procedural fluoroscopic se rvices were provided. CLINICAL INDICATION:Female, 78 years old with history of RIGHT HUMERUS FX; , PHH FINDINGS: No postsurgical changes from right humerus fracture fixation with intramedullary artur. Radiographic ev idence for complication. Total fluoroscopy time is 3.00 min. DAP: 3.8890 Gycm2 Please see the operative/procedural note for further details. [facility], , 10/03/2024 3:45 PM
[2024-10-03] MEDS ORDERED: HYDROmorphone 0.5 MG/0.5 ML SYRINGE IVP PRN ×3 (16:12)
[2024-10-03] MEDS ORDERED: HYDROcodone/APAP 5-325MG 1 EACH TAB PO PRN (16:12)
--- NOTE | 2024-10-03 16:48 | P.OP ---
Date of Procedure: 10/03/24 Procedure(s) Performed: PREOPERATIVE DIAGNOSES: 1. Right humeral shaft fracture, spiral comminuted displaced POSTOPERATIVE DIAGNOSES: 1. Right humeral shaft fracture, spiral comminuted displaced; 2. 2.5 cm chronic appearing rotator cuff tear involving supraspinatus and part of infraspinatus PROCEDURES PERFORMED: 1. Right humeral shaft fracture open reduction and intramedullary nailing; 2. Repair of rotator cuff tear ANESTHESIA: Gen. URINALYSIS TECHNICIAN: Lisa Frazier PA-C (assistance with: Patient positioning, retraction, exposure, fixation, hemostasis, closure, dressing, splint) COMPLICATIONS: None ESTIMATED BLOOD LOSS: Approximately 150 ml DISPOSITION: To post-anesthesia care unit INDICATIONS: Mrs. Stout is a 78 year old lady who fell and sustained a displaced comminuted humeral shaft fracture involving the surgical neck region and below to about mid-shaft. 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 I have advised close, possible open reduction and fixation with either an intramedullary nail or an ORIF plate. I have explained the risks and potential complications of this surgery as being inclusive of but not limited to bleeding, infection, scarring, discomfort, blood vessel and/or nerve damage, radial nerve injury, malunion, nonunion, stiffness, hardware irritation, deformity, rotational abnormality, need for further surgery, and other risks. We have extensively discussed the risk of stiffness of the shoulder and elbow joints, which is something that sometimes occurs with these kinds of injuries. We have discussed the need for rehabilitation and occupational therapy to regain motion. The consent form has been signed. PROCEDURE: After appropriate consent was obtained, the patient was taken to the operating room placed in the supine position. Anesthesia was initiated, and after confirmation of adequate anesthesia, the patient was carefully positioned in the lateral decubitus position. Care was taken to make sure that all pressure points were adequately padded. Bolster was secured with Coban for a posterior approach to the humerus. Prepping and draping were completed in the usual aseptic fashion using ChloraPrep, with the arm being prepped free. Timeout was called, confirming patient identity, side, procedure, and administration of antibiotics. 1 g of IV TXA was given intraoperatively as well. An incision was created in line with the anterolateral border of the acromion and carried down from this region for a distance of approximately 4 cm. Dissection proceeded down to deltoid fascia which was split in line with the incision. Deep deltoid fascia was incised and bursal material in the subacromial space was removed as necessary. The rotator cuff came into view and was noted to have a 2 cm tear involving nearly the entire supraspinatus and a small portion of the infraspinatus tendon. This tear was in the region of the planned entry site for the humeral nail and therefore the rotator cuff tear was not repaired initially but was utilized to allow for placement of the guidewire. Guidewire was placed in the proximal humerus and drilled for a distance of approximately 5 cm a starter reamer was then used over the guidepin to create an entry site for the nail. Using a guidewire russell along with a gentle bend at the tip of the guidewire, the guidewire was attempted to be directed into the distal shaft fragment without success. C arm guidance was used for the step. Subsequently, a 3 cm incision was created in the anterolateral region of the arm at approximately the level of the entry point for the distal fragment. This was gently dissected bluntly down to bone and manual assistance was then utilized to allow passage of the guidewire into the distal fragment. Once this was accomplished the guidewire was advanced down to the supracondylar region of the distal humerus. Measurements were made with taking into consideration the shortening around the comminuted area of the humerus. Reamer was then advanced along the guidewire down to the supracondylar region of the distal humerus and plan was made for a 7 mm diameter nail. A 225 mm x 7 mm nail was selected. This was attached to the insertion jig and advanced down into the prepared hole using manual pressure without the use of a mallet. The insertion jig was placed lateral and C arm images were taken to make sure that the hardware was adequately positioned. Small incisions were created over the triple guides and 2 locking fully threaded screws were placed through the bushings of the nail and also into the outer cortex of the humerus. The Synthes multi lock nail was used. Next, it was noted that there was some degree of shortening of the fracture site and therefore traction was placed on the elbow to allow for the fracture to assume a more anatomic alignment. Once this was performed and was judged to be satisfactory, a distal interlock was placed using freehand technique with good bicortical purchase. The arm was taken through gentle range of motion and found to be stable at the fracture site with the humeral nail fixation. All incisions were then irrigated with normal saline and repair of the rotator cuff was performed using #2 FiberWire suture in [id number] fashion. This technique completely closed the hole created by the rotator cuff tear and utilized by the humeral artur insertion. Hemostasis was obtained using electrocautery throughout the case. Deltoid fascia was carefully closed using 0 Vicryl suture. Other incisions were closed with 3-0 Vicryl suture in the subcutaneous tissues followed by routine skin closure with Monocryl and cyanoacrylate. A soft dressing was placed. Vascular status was satisfactory of the hand. Patient tolerated the procedure well and taken to recovery room in stable condition.
[2024-10-03] MEDS: LACTATED RINGERS 1,000 ML IV SCH (18:04)
[2024-10-03] MEDS: HYDROcodone/APAP 5-325MG 1 EACH TAB PO PRN (20:50)
[2024-10-03] MEDS: ceFAZolin 2 GM in DEXTROSE 5% IN WATER 50 ML IVPB SCH (23:27)
[2024-10-04 09:52] LABS: Basophils # (A) 0.02 X 10*3/uL (0.00-0.10); Basophils % (A) 0.2 %; Eosinophils # (A) 0 X 10*3/uL (0.04-0.35); Eosinophils % (A) 0 %; HCT 31.2 % (37.2-46.3); HGB 10.3 g/dL (12.0-15.0); Lymphocytes # (A) 2.68 X 10*3/uL (0.90-5.00); Lymphocytes % (A) 24.5 %; MCH 31.1 pg (27.0-32.0); MCV 94.3 FL (80.0-97.0); Mean Platelet Volume 10.7 FL (9.5-12.2); Monocytes # (A) 1.11 X 10*3/uL (0.20-1.00); Monocytes % (A) 10.1 %; NRBC Per 100 WBC 0 X 10*3/uL (0.00-0.01); Neutrophils # (A) 7.09 X 10*3/uL (1.80-7.70); Neutrophils % (A) 64.7 %; Platelet Count 212 X 10*3/uL (140-440); RBC 3.31 X 10*6/uL (4.10-5.20); RDW 12.9 % (11.5-14.5); WBC 10.95 X 10*3/uL (4.50-10.00)
--- NOTE | 2024-10-04 12:42 | P.PN ---
Subjective Progress Note Date: 10/04/24 Principal diagnosis: S/P ORIF right humerus fracture Patient is seen at bedside this morning. She is postop day #1 from ORIF right humerus fracture. She has pain at the surgical site as expected but denies any new complaints. She denies numbness, tingling or calf pain. Review of systems is negative for fever, chills, chest pain, shortness of breath or other Objective - Vital Signs Vital signs: Vital Signs Temp 97.9 F 10/04/24 07:02 Pulse 78 10/04/24 07:02 Resp 18 10/04/24 07:02 BP 148/63 10/04/24 07:02 Pulse Ox 97 10/04/24 07:02 FiO2 Intake & Output 10/03/24 10/04/24 10/04/24 18:59 06:59 18:59 Intake Total 1500 Output Total 100 Balance 1400 Intake: IV 1500 Output: Estimated Blood Loss 100 Other: Voiding Method Bedside Commode Bedpan Bedpan # Voids 3 2 - Exam Inspection reveals a benign surgical wound. There is no active bleeding or drainage. Neurovascular status is intact throughout the upper extremity with motor and sensation fully intact. 2+ radial pulse and less than 2 second cap refill is present. - Constitutional General appearance: Present: no acute distress - Labs CBC & Chem 7: 10/04/24 04:50 10/03/24 03:45 Labs: Abnormal Lab Results - Last 24 Hours (Table) 10/04/24 Range/Units 04:50 WBC 10.95 H (4.50-10.00) X 10*3/uL RBC 3.31 L (4.10-5.20) X 10*6/uL Hgb 10.3 L (12.0-15.0) g/dL Hct 31.2 L (37.2-46.3) % Immature Gran # 0.05 H (0.00-0.04) X 10*3/uL Monocytes # 1.11 H (0.20-1.00) X 10*3/uL Eosinophils # 0 L (0.04-0.35) X 10*3/uL Assessment and Plan (1) Right humeral fracture Narrative/Plan: She will continue with routine postop orthopedic protocol including pain management, wound care, PT, DVT prophylaxis and medical management. Expect that she will transfer to home vs ECF in next few days Current Visit: Yes Status: Acute Priority: Medium Code(s): S42.301A - UNSP FRACTURE OF SHAFT OF HUMERUS, RIGHT ARM, INIT SNOMED Code(s): 69209543 Time with Patient: Less than 30
--- NOTE | 2024-10-05 11:52 | P.PN ---
Subjective Progress Note Date: 10/05/24 Principal diagnosis: S/P ORIF right humerus fracture Patient is seen at bedside this morning. She is postop day #2 from ORIF right humerus fracture. She has pain at the surgical site as expected but denies any new complaints. She denies numbness, tingling or calf pain. Review of systems is negative for fever, chills, chest pain, shortness of breath or other Objective - Vital Signs Vital signs: Vital Signs Temp 98.3 F 10/05/24 01:35 Pulse 89 10/05/24 01:35 Resp 17 10/05/24 01:35 BP 150/67 10/05/24 01:35 Pulse Ox 95 10/05/24 01:35 FiO2 Intake & Output 10/04/24 10/05/24 10/05/24 18:59 06:59 18:59 Other: Voiding Method Bedside Commode Bedside Commode Bedpan Bedpan # Voids 3 2 - Exam Inspection reveals a benign surgical wound. There is no active bleeding or drainage. Neurovascular status is intact throughout the upper extremity with motor and sensation fully intact. 2+ radial pulse and less than 2 second cap refill is present. - Constitutional General appearance: Present: no acute distress - Labs CBC & Chem 7: 10/04/24 04:50 10/03/24 03:45 Assessment and Plan (1) Right humeral fracture Narrative/Plan: She will continue with routine postop orthopedic protocol including pain management, wound care, PT, DVT prophylaxis and medical management. Expect that she will transfer to home vs ECF in next 1-2 days Current Visit: Yes Status: Acute Priority: Medium Code(s): S42.301A - UNSP FRACTURE OF SHAFT OF HUMERUS, RIGHT ARM, INIT SNOMED Code(s): 04609753 Time with Patient: Less than 30
[2024-10-05] MEDS: CIPROFLOXACIN HCL 250 MG TAB PO SCH (13:18)
[2024-10-05] MEDS: HYDROcodone/APAP 5-325MG 1 EACH TAB PO PRN (13:18)
--- NOTE | 2024-10-05 21:17 | P.PN ---
Subjective Progress Note Date: 10/03/24 78-year-old female had a mechanical fall and hit the right shoulder and patient had right humerus fracture. Patient is functionally female not dependent on ADLs and IADLs. Patient denied any significant cardiac history had only significant medical problem is seasonal allergies, asthma hypertension for which patient is on 3 medications although patient is hypotensive at this time. Patient also hyponatremic secondary to hydrochlorothiazide. Patient denied any chest pain at this time denied orthopnea paroxysmal nocturnal dyspnea ECG is not consistent with any ischemia. No acute ST-T wave changes. Patient will not need any further workup. --Patient is seen and evaluated with family at bedside; reports burning urination; UA discussed with patient; will start on oral Cipro Objective - Vital Signs Vital signs: Vital Signs Temp 98.4 F 10/03/24 07:13 Pulse 100 10/03/24 11:55 Resp 16 10/03/24 11:55 BP 178/70 10/03/24 11:55 Pulse Ox 96 10/03/24 11:55 FiO2 Intake & Output 10/02/24 10/03/24 10/03/24 18:59 06:59 18:59 Other: Voiding Method Bedside Commode Bedside Commode # Voids 1 3 # Bowel Movements 1 1 - Exam GENERAL: The patient is alert and oriented x3, not in any acute distress. Well developed, well nourished. HEENT: Pupils are round and equally reacting to light. EOMI. No scleral icterus. No conjunctival pallor. Normocephalic, atraumatic. No pharyngeal erythema. No thyromegaly. CARDIOVASCULAR: S1 and S2 present. No murmurs, rubs, or gallops. PULMONARY: Chest is clear to auscultation, no wheezing or crackles. ABDOMEN: Soft, nontender, nondistended, normoactive bowel sounds. No palpable organomegaly. MUSCULOSKELETAL: No joint swelling or deformity. EXTREMITIES: No cyanosis, clubbing, or pedal edema. Humerus fracture as mentioned above NEUROLOGICAL: Gross neurological examination did not reveal any focal deficits. SKIN: No rashes. - Labs CBC & Chem 7: 10/04/24 04:50 10/03/24 03:45 Labs: Abnormal Lab Results - Last 24 Hours (Table) 10/03/24 Range/Units 03:45 Sodium 133 L (137-145) mmol/L Carbon Dioxide 21 L (22-30) mmol/L BUN 23 H (7-17) mg/dL Glucose 115 H (74-99) mg/dL Assessment and Plan Assessment: Assessment and plan -Right wrist fracture: Patient is already visible orthopedic surgery. No further workup is needed for clearance. - Hyponatremia patient was on IV fluids acute hydrochlorothiazide hypertension patient is hypotensive not requiring any antiarrhythmic agents at this time patient will need hydration given preoperative hypotension seasonal allergies, asthma patient has been in acute exacerbation of asthma at this time DVT prophylaxis: As per service
--- NOTE | 2024-10-05 21:20 | P.PN ---
Subjective Progress Note Date: 10/05/24 78-year-old female had a mechanical fall and hit the right shoulder and patient had right humerus fracture. Patient is functionally female not dependent on ADLs and IADLs. Patient denied any significant cardiac history had only significant medical problem is seasonal allergies, asthma hypertension for which patient is on 3 medications although patient is hypotensive at this time. Patient also hyponatremic secondary to hydrochlorothiazide. Patient denied any chest pain at this time denied orthopnea paroxysmal nocturnal dyspnea ECG is not consistent with any ischemia. No acute ST-T wave changes. Patient will not need any further workup. --Patient is seen and evaluated with family at bedside; reports burning urination; UA discussed with patient; will start on oral Cipro 10/04/2024 Patient is seen and evaluated with family at bedside; patient's daughters concerned about discharge planning; patient has left lower extremity prosthesis with concern for possibly malfunction resulting in multiple falls -Vital signs are stable - Patient is able to tolerate Cipro well -Family is concerned about discharge planning at this time; reported that patient will not be able to manage for herself at home given left amputation with malfunctioning prosthesis; patient unable to use the walker due to right humeral fracture - PT will evaluate patient on Sunday - Family will call for prosthesis check Objective - Vital Signs Vital signs: Vital Signs Temp 97.9 F 10/04/24 07:02 Pulse 78 10/04/24 07:02 Resp 18 10/04/24 07:02 BP 148/63 10/04/24 07:02 Pulse Ox 97 10/04/24 07:02 FiO2 Intake & Output 10/03/24 10/04/24 10/04/24 18:59 06:59 18:59 Intake Total 1500 Output Total 100 Balance 1400 Intake: IV 1500 Output: Estimated Blood Loss 100 Other: Voiding Method Bedside Commode Bedpan Bedpan # Voids 3 2 - Exam GENERAL: The patient is alert and oriented x3, not in any acute distress. Well developed, well nourished. HEENT: Pupils are round and equally reacting to light. EOMI. No scleral icterus. No conjunctival pallor. Normocephalic, atraumatic. No pharyngeal erythema. No thyromegaly. CARDIOVASCULAR: S1 and S2 present. No murmurs, rubs, or gallops. PULMONARY: Chest is clear to auscultation, no wheezing or crackles. ABDOMEN: Soft, nontender, nondistended, normoactive bowel sounds. No palpable organomegaly. MUSCULOSKELETAL: No joint swelling or deformity. EXTREMITIES: No cyanosis, clubbing, or pedal edema. Humerus fracture as mentioned above NEUROLOGICAL: Gross neurological examination did not reveal any focal deficits. SKIN: No rashes. - Labs CBC & Chem 7: 10/04/24 04:50 10/03/24 03:45 Labs: Abnormal Lab Results - Last 24 Hours (Table) 10/04/24 Range/Units 04:50 WBC 10.95 H (4.50-10.00) X 10*3/uL RBC 3.31 L (4.10-5.20) X 10*6/uL Hgb 10.3 L (12.0-15.0) g/dL Hct 31.2 L (37.2-46.3) % Immature Gran # 0.05 H (0.00-0.04) X 10*3/uL Monocytes # 1.11 H (0.20-1.00) X 10*3/uL Eosinophils # 0 L (0.04-0.35) X 10*3/uL Assessment and Plan Assessment: Assessment and plan -Right wrist fracture: Patient is already visible orthopedic surgery. No further workup is needed for clearance. - Hyponatremia patient was on IV fluids acute hydrochlorothiazide hypertension patient is hypotensive not requiring any antiarrhythmic agents at this time patient will need hydration given preoperative hypotension seasonal allergies, asthma patient has been in acute exacerbation of asthma at this time DVT prophylaxis: As per service
--- NOTE | 2024-10-05 21:22 | P.PN ---
Subjective Progress Note Date: 10/05/24 78-year-old female had a mechanical fall and hit the right shoulder and patient had right humerus fracture. Patient is functionally female not dependent on ADLs and IADLs. Patient denied any significant cardiac history had only significant medical problem is seasonal allergies, asthma hypertension for which patient is on 3 medications although patient is hypotensive at this time. Patient also hyponatremic secondary to hydrochlorothiazide. Patient denied any chest pain at this time denied orthopnea paroxysmal nocturnal dyspnea ECG is not consistent with any ischemia. No acute ST-T wave changes. Patient will not need any further workup. --Patient is seen and evaluated with family at bedside; reports burning urination; UA discussed with patient; will start on oral Cipro 10/04/2024 Patient is seen and evaluated with family at bedside; patient's daughters concerned about discharge planning; patient has left lower extremity prosthesis with concern for possibly malfunction resulting in multiple falls -Vital signs are stable - Patient is able to tolerate Cipro well -Family is concerned about discharge planning at this time; reported that patient will not be able to manage for herself at home given left amputation with malfunctioning prosthesis; patient unable to use the walker due to right humeral fracture - PT will evaluate patient on Sunday - Family will call for prosthesis check 10/05/2024 Patient is seen and evaluated resting comfortably in bed; status post ORIF right humerus fracture; POD #2 Vital signs are reviewed and remained stable Patient and family to discuss with orthopedic surgery regarding discharge planning -Patient awaits reevaluation by physical therapy; willing to go to skilled rehab if recommended Objective - Vital Signs Vital signs: Vital Signs Temp 98.1 F 10/05/24 19:14 Pulse 92 10/05/24 19:14 Resp 18 10/05/24 19:14 BP 153/73 10/05/24 19:14 Pulse Ox 95 10/05/24 19:14 FiO2 Intake & Output 10/05/24 10/05/24 10/06/24 06:59 18:59 06:59 Other: Voiding Method Bedside Commode Bedpan # Voids 2 4 - Exam GENERAL: The patient is alert and oriented x3, not in any acute distress. Well developed, well nourished. HEENT: Pupils are round and equally reacting to light. EOMI. No scleral icterus. No conjunctival pallor. Normocephalic, atraumatic. No pharyngeal erythema. No thyromegaly. CARDIOVASCULAR: S1 and S2 present. No murmurs, rubs, or gallops. PULMONARY: Chest is clear to auscultation, no wheezing or crackles. ABDOMEN: Soft, nontender, nondistended, normoactive bowel sounds. No palpable organomegaly. MUSCULOSKELETAL: No joint swelling or deformity. EXTREMITIES: No cyanosis, clubbing, or pedal edema. Humerus fracture as mentioned above NEUROLOGICAL: Gross neurological examination did not reveal any focal deficits. SKIN: No rashes. - Labs CBC & Chem 7: 10/04/24 04:50 10/03/24 03:45 Assessment and Plan Assessment: Assessment and plan -Right wrist fracture: Patient is already visible orthopedic surgery. No further workup is needed for clearance. - Hyponatremia patient was on IV fluids acute hydrochlorothiazide hypertension patient is hypotensive not requiring any antiarrhythmic agents at this time patient will need hydration given preoperative hypotension seasonal allergies, asthma patient has been in acute exacerbation of asthma at this time DVT prophylaxis: As per service
[2024-10-06] MEDS: SENNOSIDES-DOCUSATE SODIUM 1 EACH TAB PO PRN (04:05)
--- NOTE | 2024-10-06 09:13 | P.PN ---
Subjective Progress Note Date: 10/06/24 Principal diagnosis: Right proximal humerus fracture. Status post fall. History of above knee amputation left leg. Shama presents to the ER today with family after falling and sustaining injury to her right shoulder. She states that she tripped and fell in her home and hit the door frame with her right shoulder. On exam and x-ray in the emergency department she is found to have a three-part proximal humerus fracture. She is admitted to our service for surgical intervention and care. 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 She has had a mmywz-ksr-daaq prosthesis since. 10/02/2024: The patient is stable from orthopedic standpoint. There are no new complaints or concerns today. Family is present at bedside. Vital signs are stable. 10/06/2024: Patient is postop day #3 status post closed reduction with insertion of intramedullary nail right proximal humerus. The patient has not been up yet today. She had difficulty getting up with PT over the weekend stating that she was unable to get her prosthesis on her left leg. She feels that the prosthetic may have been damaged in the fall. She is awaiting evaluation of the prosthetic from [facility]. She has no new complaints or concerns today. Vital signs are stable. Objective - Vital Signs Vital signs: Vital Signs Temp 98 F 10/06/24 07:25 Pulse 92 10/06/24 07:25 Resp 16 10/06/24 07:25 BP 164/70 10/06/24 07:25 Pulse Ox 96 10/06/24 07:25 FiO2 Intake & Output 10/05/24 10/06/24 10/06/24 18:59 06:59 18:59 Other: Voiding Method Bedside Commode Bedpan # Voids 4 1 - Exam This is a pleasant 78-year-old female in no acute distress. She is alert and oriented x 3. Exam of the right upper extremity reveals some evolving ecchymosis to the right shoulder and upper arm. Incisions are clean and dry. Skin glue is intact. There is mild soft tissue swelling. Sling is in place. She has full wrist and finger motion without difficulty or pain. Neurovascular status to the upper extremity is intact. - Labs CBC & Chem 7: 10/04/24 04:50 10/03/24 03:45 Assessment and Plan (1) History of above-knee amputation of left lower extremity Current Visit: Yes Status: Acute Code(s): Z89.612 - ACQUIRED ABSENCE OF LEFT LEG ABOVE KNEE SNOMED Code(s): 930905267454979 (2) Right humeral fracture Current Visit: Yes Status: Acute Priority: Medium Code(s): S42.301A - UNSP FRACTURE OF SHAFT OF HUMERUS, RIGHT ARM, INIT SNOMED Code(s): 23062054 Plan: The clinical and x-ray findings are discussed with the patient and her family. I spoke with physical therapy regarding her ability to get up. They will look at her prosthesis as well this morning. We will continue care. I recommend she be transferred to inpatient rehab at discharge.
[2024-10-06] MEDS: lisinopriL 10 MG TAB PO SCH (14:16)
[2024-10-06] MEDS: amLODIPine 10 MG TAB PO SCH (14:16)
[2024-10-07 02:31] VITALS: TEMP 98.3
[2024-10-07 08:07] VITALS: BP 149/74; PULSE 87; RESP 16
--- NOTE | 2024-10-07 10:09 | P.PN ---
Subjective Progress Note Date: 10/06/24 78-year-old female had a mechanical fall and hit the right shoulder and patient had right humerus fracture. Patient is functionally female not dependent on ADLs and IADLs. Patient denied any significant cardiac history had only significant medical problem is seasonal allergies, asthma hypertension for which patient is on 3 medications although patient is hypotensive at this time. Patient also hyponatremic secondary to hydrochlorothiazide. Patient denied any chest pain at this time denied orthopnea paroxysmal nocturnal dyspnea ECG is not consistent with any ischemia. No acute ST-T wave changes. Patient will not need any further workup. --Patient is seen and evaluated with family at bedside; reports burning urination; UA discussed with patient; will start on oral Cipro 10/04/2024 Patient is seen and evaluated with family at bedside; patient's daughters concerned about discharge planning; patient has left lower extremity prosthesis with concern for possibly malfunction resulting in multiple falls -Vital signs are stable - Patient is able to tolerate Cipro well -Family is concerned about discharge planning at this time; reported that patient will not be able to manage for herself at home given left amputation with malfunctioning prosthesis; patient unable to use the walker due to right humeral fracture - PT will evaluate patient on Sunday - Family will call for prosthesis check 10/05/2024 Patient is seen and evaluated resting comfortably in bed; status post ORIF right humerus fracture; POD #2 Vital signs are reviewed and remained stable Patient and family to discuss with orthopedic surgery regarding discharge planning -Patient awaits reevaluation by physical therapy; willing to go to skilled rehab if recommended 10/06/2024 Patient is seen in follow-up with family at the bedside reporting she is doing well although awaiting physical therapy to evaluate as patient may likely need rehab. Family is concerned they will not be able to care for her as she wears a prosthesis on the opposite side and they are concerned with this being malfunctioned as well and wearing the sling making it difficult to perform ADLs. Case management to work further with the family regarding discharge planning. Vital signs are stable and patient denies shortness of breath or chest pains and remains afebrile.. Blood pressures have been elevated and will adjust and reorder Norvasc and monitor blood pressure closely. Encouraged getting up and sitting in the chair more frequently. Review of systems: Constitutional: No reports of fatigue, fever, or chills Cardiovascular: No reports of chest pain or palpitations Respiratory: No reports of shortness of breath or cough GI: No reports of nausea, vomiting, or diarrhea : No reports of dysuria or retention Neurovascular: reports of generalized weakness some continued right shoulder pain All medications have been reviewed Physical exam: Gen: This is a 78-year-old who is awake, alert and oriented x 3, well-developed, elderly appearing HEENT: Head is atraumatic, normocephalic. Pupils equal, round. Sclerae is anicteric. NECK: Supple. No JVD. No lymphadenopathy. No thyromegaly. LUNGS: Diminished breath sounds bilaterally otherwise clear to auscultation. No wheezes or rhonchi. No intercostal retractions. HEART: S1, S2 are muffled ABDOMEN: Soft. Obese bowel sounds are present. No masses. No tenderness. EXTREMITIES: No pedal edema. No calf tenderness. Right shoulder noted to be in a sling, positive pulses and cap refill less than 3 NEUROLOGICAL: Patient is awake, alert and oriented x3. Cranial nerves 2 through 12 are grossly intact. Diffusely weak Assessment: -Right proximal humerus fracture, status post fall, status post closed reduction and insertion of intramedullary nail of the right proximal humerus - Hyponatremia, likely secondary to hydrochlorothiazide, being held for now and improving -History of hypertension -History of seasonal allergies -asthma history, not in acute exacerbation DVT prophylaxis: As per service GI prophylaxis Full code Plan: Patient is admitted under orthopedics status post closed reduction and insertion of intramedullary nailing of the right proximal humerus fracture and sling is noted. Patient noticed to have positive pulses and cap refill less than 3 Patient awaiting to see PT/OT therapy for possible ECF with case management consulted Patient does have a left lower extremity prosthesis and feels it was either damaged or something happened to her hip on the left side during the fall and awaiting the prosthesis company to come evaluate Encouraged sitting up in the chair more frequently Recommend incentive spirometer use at least 10 times every hour while awake Patient would likely benefit from ECF for continued strength and mobility and patient would like to go home although is willing to go to ECF. Family is concerned about being able to take care of her. Patient is medically stable once cleared by orthopedics and will adjust blood pressure medications. Recommend outpatient follow-up with primary care provider on discharge Thank you kindly for this consultation. We will continue to follow with orthopedics during hospitalization. The impression and plan of care has been dictated by Harriett Bridges, Nurse Practitioner as directed. Dr. Catrina MD I have performed a history and examination and MDM of this patient, discussed th e same with the dictator, and agree with the dictator's assessment and plan as written ,documented as a scribe. Based on total visit time, I have performed more than 50% of the visit. Objective - Vital Signs Vital signs: Vital Signs Temp 98 F 10/06/24 07:25 Pulse 92 10/06/24 07:25 Resp 16 10/06/24 07:25 BP 164/70 10/06/24 07:25 Pulse Ox 96 10/06/24 07:25 FiO2 Intake & Output 10/05/24 10/06/24 10/06/24 18:59 06:59 18:59 Other: Voiding Method Bedside Commode Bedpan # Voids 4 1 - Labs CBC & Chem 7: 10/04/24 04:50 10/03/24 03:45
[2024-10-07 10:24] LABS: Basophils # (A) 0.04 X 10*3/uL (0.00-0.10); Basophils % (A) 0.4 %; Eosinophils # (A) 0.18 X 10*3/uL (0.04-0.35); HCT 32.3 % (37.2-46.3); HGB 10.8 g/dL (12.0-15.0); Lymphocytes % (A) 40.1 %; MCH 31.3 pg (27.0-32.0); MCHC 33.4 g/dL (32.0-37.0); MCV 93.6 FL (80.0-97.0); Mean Platelet Volume 10.5 FL (9.5-12.2); Monocytes # (A) 0.94 X 10*3/uL (0.20-1.00); Monocytes % (A) 10.2 %; NRBC Per 100 WBC 0 X 10*3/uL (0.00-0.01); Neutrophils # (A) 4.31 X 10*3/uL (1.80-7.70); Neutrophils % (A) 46.6 %; Platelet Count 242 X 10*3/uL (140-440); RBC 3.45 X 10*6/uL (4.10-5.20); RDW 13.1 % (11.5-14.5); WBC 9.23 X 10*3/uL (4.50-10.00)
[2024-10-07 10:35] LABS: Blood Urea Nitrogen 10.1 mg/dL (9.0-27.0); Glucose 120 mg/dL (70-110)
[2024-10-07 10:36] LABS: ALT 31 U/L (8-44); AST 25 U/L (13-35); Albumin 3.5 g/dL (3.8-4.9); Albumin/Globulin Ratio 2.06 Ratio (1.60-3.17); Alkaline Phosphatase 61 U/L (41-126); Calcium 8.8 mg/dL (8.7-10.3); Carbon Dioxide 26.8 mmol/L (21.6-31.8); Chloride 102 mmol/L (96-109); Globulin 1.7 g/dL (1.6-3.3); Potassium 4.2 mmol/L (3.5-5.5); Sodium 137 mmol/L (135-145); Total Bilirubin 1.1 mg/dL (0.3-1.2); Total Protein 5.2 g/dL (6.2-8.2)
--- NOTE | 2024-10-07 11:18 | P.DS ---
Providers Date of admission: 10/01/24 13:04 Expected date of discharge: 10/07/24 Attending physician: Wil Cuello Consults: 10/01/24 13:19 Consult Physician Urgent Consulting Provider: Percy Fritz Consult Reason/Comments: pre surgical clearance and medical hugh. Do you want consulting provider notified?: Yes Primary care physician: Mj Ron - Discharge Diagnosis(es) (1) History of above-knee amputation of left lower extremity Current Visit: Yes Status: Acute (2) Right humeral fracture Current Visit: Yes Status: Acute Priority: Medium Hospital Course: Shama presents to the ER today with family after falling and sustaining injury to her right shoulder. She states that she tripped and fell in her home and hit the door frame with her right shoulder. On exam and x-ray in the e mergency department she is found to have a three-part proximal humerus fracture. She is admitted to our service for surgical intervention and care. 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 She has had a xqtio-zvj-nssy prosthesis since. The patient was taken to surgery on 10/03/2024 for open reduction internal fixation with intramedullary nailing of the right proximal humerus. The procedure is performed without complication or sequelae. She is doing fairly well postoperatively. It was determined that her left leg hifik-hvz-hhel prosth etic was injured in her fall and is currently broken at the hydraulic knee. We are in the process of having the prosthetic repaired versus replaced. [facility] is working on a temporary prosthetic. She may be discharged to inpatient rehab today. She is to follow-up in 2 weeks in our office. Please see med rec for accurate list of home medications. Plan - Discharge Summary Discharge Rx Participant: No New Discharge Prescriptions: New HYDROcodone/APAP 5-325MG [Alpha 5-325] 1 - 2 tab PO Q6HR PRN #48 tab PRN Reason: Pain Sennosides-Docusate Sodium [Senokot-S] 1 tab PO BID #60 tablet Acetaminophen 500 mg PO Q8HR PRN #30 tab PRN Reason: Pain Ondansetron Odt [Zofran Odt] 4 mg PO Q8HR PRN #14 tab PRN Reason: Nausea No Action Fluticasone Propion/Salmeterol [Advair 250-50 Diskus] 1 puff INHALATION RT- BID Albuterol Nebulized [Ventolin Nebulized] 2.5 mg INHALATION RT-QID PRN PRN Reason: Shortness Of Breath lisinopriL [Zestril] 10 mg PO DAILY amLODIPine [Norvasc] 10 mg PO DAILY Albuterol Inhaler [Ventolin Hfa Inhaler] 2 puff INHALATION RT-Q4H PRN PRN Reason: Shortness Of Breath Lisinopril-Hctz 20-12.5 mg [Zestoretic 20-12.5] 2 tab PO DAILY Calcium Carbonate/Vitamin D3 [Calcium 500 mg-Vit D3 5 mcg (200 Unit)] 1 tab PO DAILY Omeprazole Magnesium [PriLOSEC OTC] 20 mg PO BID Discharge Medication List Fluticasone Propion/Salmeterol [Advair 250-50 Diskus] 1 puff INHALATION RT-BID 01/06/15 [History] Albuterol Inhaler [Ventolin Hfa Inhaler] 2 puff INHALATION RT-Q4H PRN 10/01/24 [History] Albuterol Nebulized [Ventolin Nebulized] 2.5 mg INHALATION RT-QID PRN 10/01/24 [History] Calcium Carbonate/Vitamin D3 [Calcium 500 mg-Vit D3 5 mcg (200 Unit)] 1 tab PO DAILY 10/01/24 [History] Lisinopril-Hctz 20-12.5 mg [Zestoretic 20-12.5] 2 tab PO DAILY 10/01/24 [History] Omeprazole Magnesium [PriLOSEC OTC] 20 mg PO BID 10/01/24 [History] amLODIPine [Norvasc] 10 mg PO DAILY 10/01/24 [History] lisinopriL [Zestril] 10 mg PO DAILY 10/01/24 [History] Acetaminophen 500 mg PO Q8HR PRN #30 tab 10/07/24 [Rx] HYDROcodone/APAP 5-325MG [Alpha 5-325] 1 - 2 tab PO Q6HR PRN #48 tab 10/07/24 [Rx] Ondansetron Odt [Zofran Odt] 4 mg PO Q8HR PRN #14 tab 10/07/24 [Rx] Sennosides-Docusate Sodium [Senokot-S] 1 tab PO BID #60 tablet 10/07/24 [Rx] Follow up Appointment(s)/Referral(s): Mj Ron MD [Primary Care Provider] - 1-2 days [facility], [NON-STAFF] - As Needed Wil Cuello MD [STAFF PHYSICIAN] - 2 Weeks Activity/Diet/Wound Care/Special Instructions: No weightbearing right upper extremity. May perform passive range of motion of the shoulder to chest level. May perform passive and active range of motion to the elbow, wrist and fingers. May shower. Discharge Disposition: TRANSFER TO SNF/ECF
--- NOTE | 2024-10-12 16:19 | P.PN ---
Subjective Progress Note Date: 10/07/24 78-year-old female had a mechanical fall and hit the right shoulder and patient had right humerus fracture. Patient is functionally female not dependent on ADLs and IADLs. Patient denied any significant cardiac history had only significant medical problem is seasonal allergies, asthma hypertension for which patient is on 3 medications although patient is hypotensive at this time. Patient also hyponatremic secondary to hydrochlorothiazide. Patient denied any chest pain at this time denied orthopnea paroxysmal nocturnal dyspnea ECG is not consistent with any ischemia. No acute ST-T wave changes. Patient will not need any further workup. --Patient is seen and evaluated with family at bedside; reports burning urination; UA discussed with patient; will start on oral Cipro 10/04/2024 Patient is seen and evaluated with family at bedside; patient's daughters concerned about discharge planning; patient has left lower extremity prosthesis with concern for possibly malfunction resulting in multiple falls -Vital signs are stable - Patient is able to tolerate Cipro well -Family is concerned about discharge planning at this time; reported that patient will not be able to manage for herself at home given left amputation with malfunctioning prosthesis; patient unable to use the walker due to right humeral fracture - PT will evaluate patient on Sunday - Family will call for prosthesis check 10/05/2024 Patient is seen and evaluated resting comfortably in bed; status post ORIF right humerus fracture; POD #2 Vital signs are reviewed and remained stable Patient and family to discuss with orthopedic surgery regarding discharge planning -Patient awaits reevaluation by physical therapy; willing to go to skilled rehab if recommended 10/06/2024 Patient is seen in follow-up with family at the bedside reporting she is doing well although awaiting physical therapy to evaluate as patient may likely need rehab. Family is concerned they will not be able to care for her as she wears a prosthesis on the opposite side and they are concerned with this being malfunctioned as well and wearing the sling making it difficult to perform ADLs. Case management to work further with the family regarding discharge planning. Vital signs are stable and patient denies shortness of breath or chest pains and remains afebrile.. Blood pressures have been elevated and will adjust and reorder Norvasc and monitor blood pressure closely. Encouraged getting up and sitting in the chair more frequently. 10/07/2024 Patient is seen in follow-up today has been evaluated by physical therapy recommending rehab and patient is agreeable. Patient has been accepted and will be discharged today per orthopedics. Patient has been instructed to follow-up with primary care provider outpatient and also continue with current pain management regimen per orthopedics. Patient to continue with incentive spirometer and right arm sling with continued physical therapy at the [facility]. Review of systems: Constitutional: No reports of fatigue, fever, or chills Cardiovascular: No reports of chest pain or palpitations Respiratory: No reports of shortness of breath or cough GI: No reports of nausea, vomiting, or diarrhea : No reports of dysuria or retention Neurovascular: reports of generalized weakness some continued right shoulder pain All medications have been reviewed Physical exam: Gen: This is a 78-year-old who is awake, alert and oriented x 3, well-developed, elderly appearing HEENT: Head is atraumatic, normocephalic. Pupils equal, round. Sclerae is anicteric. NECK: Supple. No JVD. No lymphadenopathy. No thyromegaly. LUNGS: Diminished breath sounds bilaterally otherwise clear to auscultation. No wheezes or rhonchi. No intercostal retractions. HEART: S1, S2 are muffled ABDOMEN: Soft. Obese bowel sounds are present. No masses. No tenderness. EXTREMITIES: No pedal edema. No calf tenderness. Right shoulder noted to be in a sling, positive pulses and cap refill less than 3 NEUROLOGICAL: Patient is awake, alert and oriented x3. Cranial nerves 2 through 12 are grossly intact. Diffusely weak Assessment: -Right proximal humerus fracture, status post fall, status post closed reduction and insertion of intramedullary nail of the right proximal humerus - Hyponatremia, likely secondary to hydrochlorothiazide, continue to hold and recommend outpatient follow-up with repeat labs -History of hypertension -History of seasonal allergies -asthma history, not in acute exacerbation DVT prophylaxis: As per service GI prophylaxis Full code Plan: Patient is admitted under orthopedics status post closed reduction and insertion of intramedullary nailing of the right proximal humerus fracture and sling is noted. Patient noticed to have positive pulses and cap refill less than 3 Patient is agreeable to [facility] and has been accepted and will be discharged today. Case management following making arrangements for discharge planning. Patient does have a left lower extremity prosthesis and feels it was either damaged or something happened to her hip on the left side during the fall and awaiting the prosthesis company to come evaluate Encouraged sitting up in the chair more frequently Recommend incentive spirometer use at least 10 times every hour while awake Patient is medically stable once cleared by orthopedics and will adjust blood pressure medications. Recommend outpatient follow-up with primary care provider on discharge Thank you kindly for this consultation. We will continue to follow with orthopedics during hospitalization. The impression and plan of care has been dictated by Harriett Bridges, Nurse Practitioner as directed. Dr. Catrina MD I have performed a history and examination and MDM of this patient, discussed the same with the dictator, and agree with the dictator's assessment and plan as written ,documented as a scribe. Based on total visit time, I have performed more than 50% of the visit. Objective - Vital Signs Vital signs: Vital Signs Temp 98.3 F 10/07/24 07:05 Pulse 87 10/07/24 08:26 Resp 16 10/07/24 08:26 BP 149/74 10/07/24 07:05 Pulse Ox 96 10/07/24 07:05 FiO2 Intake & Output 10/06/24 10/07/24 10/07/24 18:59 06:59 18:59 Other: Voiding Method Bedside Commode Bedside Commode Bedside Commode Bedpan Bedpan Bedpan # Voids 3 1 # Bowel Movements 1 - Labs CBC & Chem 7: 10/07/24 06:02 10/07/24 06:02
== END 2024-10-07 14:24 | DRG 493 ==
LOC: EC 10:05 → 4SSUR 13:04
PROVIDERS: ADMIT Orthopaedic Surgery; ATTEND Orthopaedic Surgery
PROC: 0LQ10ZZ Repair Right Shoulder Tendon, Open Approach (ICD-10-PCS; 2024-10-03)
PROC: 3E0T3BZ Introduction of Anesthetic Agent into Peripheral Nerves and Plexi, Percutaneous Approach (ICD-10-PCS; 2024-10-03)
PROC: 8E0 Other Procedures, Physiological Systems and Anatomical Regions, Other Procedures (ICD-10-PCS; 2024-10-03)
PROC: 0PSF06Z Reposition Right Humeral Shaft with Intramedullary Internal Fixation Device, Open Approach (ICD-10-PCS; principal; 2024-10-03 13:00)
DX: S42.351A Displaced comminuted fracture of shaft of humerus, right arm, initial encounter for closed fracture (principal); E87.1 Hypo-osmolality and hyponatremia; Z89.612 Acquired absence of left leg above knee; J45.901 Unspecified asthma with (acute) exacerbation; I10 Essential (primary) hypertension; Z89.512 Acquired absence of left leg below knee; M75.101 Unspecified rotator cuff tear or rupture of right shoulder, not specified as traumatic; T50.2X5A Adverse effect of carbonic-anhydrase inhibitors, benzothiadiazides and other diuretics, initial encounter; W01.0XXA Fall on same level from slipping, tripping and stumbling without subsequent striking against object, initial encounter; W22.09XA Striking against other stationary object, initial encounter; Y92.009 Unspecified place in unspecified non-institutional (private) residence as the place of occurrence of the external cause; Z79.82 Long term (current) use of aspirin; Z79.899 Other long term (current) drug therapy; Z85.830 Personal history of malignant neoplasm of bone; Z88.8 Allergy status to other drugs, medicaments and biological substances
CPT/HCPCS: 64415; 71045; 80048; 80053; 81001; 85025; 85610; 85730; 93005; 94640; 96374; 96375; 99285